=== PATIENT | female | born 1950 | race Caucasian/White ===

== ENCOUNTER 2018-11-12 07:48 | Emergency (ER) | payer OTHER ==
[2018-11-12] MEDS ORDERED: FAMOTIDINE 20 MG/2 ML VIAL IV ONE (08:57)
[2018-11-12] MEDS ORDERED: NA CHLORIDE 0.9% 500 ML ONE ×2 (08:57→11:10)
[2018-11-12] MEDS ORDERED: ONDANSETRON 4 MG/2 ML VIAL ONE (08:57)
[2018-11-12 09:00] LABS: Absolute Lymphocytes (CBC) 0.5 K/uL (0.7-4.9); Absolute Monocytes 0.3 K/uL (0.1-1.3); Absolute Neutrophil 8.8 K/uL (1.8-8.0); Basophils % 0.1 % (0-1.3); Eosinophils % 0.3 % (0-4.4); Hematocrit 38.4 % (36.0-45.0); Lymphocytes % 4.8 % (15.3-44.8); MPV 7.5 fL (7.6-11.3); Monocytes % 3.3 % (3.3-12.3); RBC Red Blood Cell Count 4.32 M/uL (3.86-4.86)
--- NOTE | 2018-11-12 09:07 | RAD REPORT ---
EXAM DESCRIPTION: CT - [id number] - 11/12/2018 8:57 am CLINICAL HISTORY: Trauma, head and neck injury. syncope, head injury;Pain COMPARISON: No comparisons TECHNIQUE: Axial 5 mm thick images of the head were obtained. Axial 2 mm thick images of the cervical spine were obtained with sagittal and coronal reconstruction images generated and reviewed. All CT scans are performed using dose optimization technique as appropriate and may include automated exposure control or mA/KV adjustment according to patient size. FINDINGS: CT HEAD WITHOUT CONTRAST: No acute hemorrhage, hydrocephalus or extra-axial collection is identified.No areas of brain edema or midline shift. The paranasal sinuses and mastoids are clear.The calvarium is intact. CT CERVICAL SPINE WITHOUT CONTRAST: No fracture or subluxation.No prevertebral soft tissues swelling is identified. IMPRESSION: No acute intracranial or cervical spine findings.
[2018-11-12 09:11] LABS: Potassium 3.8 mmol/L (3.5-5.1)
--- NOTE | 2018-11-12 11:39 | EDPHYS ---
Physician Documentation [facility] Name: Milka Quiroz Age: 68 yrs Sex: Female : 1950 Arrival Date: 11/12/2018 Time: 07:49 Bed 4 Private MD: Pato Adams ED Physician Corona Lenz HPI: 11/12 08:05 This 68 yrs old Female presents to ER via Wheelchair with complaints of kdr Passed Out Prior To Arrival, Fall Injury. 08:05 The patient has experienced syncope, became unresponsive, collapsed, lost kdr consciousness. Onset: The symptoms/episode began/occurred acutely, suddenly, just prior to arrival. Duration: This was a single episode, that lasted an unknown period of time. Context: occurred at home, occurred while the patient was Sitting on toilet - has had diarrhea for the past three days. Just prior to the episode the patient experienced lightheadedness. Associated injury: Head/face:. Associated signs and symptoms: The patient has no apparent associated signs or symptoms. Current symptoms: Currently, the patient is not experiencing any symptoms. Current symptoms: Minor nausea and slight tenderness to the frontal/apical area of the scalp. The patient has not experienced similar symptoms in the past. The patient has not recently seen a physician. Historical: - Allergies: 08:04 No Known Allergies; bp - Home Meds: 08:04 Protonix 40 mg Oral TbEC 1 tab once daily [Active]; bp - PMHx: 08:04 GERD; bp - Immunization history:: Adult Immunizations up to date. - Social history:: Smoking status: Patient/guardian denies using tobacco. - Ebola Screening: : No symptoms or risks identified at this time. ROS: 08:05 Constitutional: Negative for fever, chills, and weight loss, Eyes: Negative for injury, kdr pain, redness, and discharge, ENT: Negative for injury, pain, and discharge, Neck: Negative for injury, pain, and swelling, Cardiovascular: Negative for chest pain, palpitations, and edema, Respiratory: Negative for shortness of breath, cough, wheezing, and pleuritic chest pain, Back: Negative for injury and pain, : Negative for injury, bleeding, discharge, and swelling, MS/Extremity: Negative for injury and deformity, Skin: Negative for injury, rash, and discoloration, Psych: Negative for depression, anxiety, suicide ideation, homicidal ideation, and hallucinations, Allergy/Immunology: Negative for hives, rash, and allergies, Endocrine: Negative for neck swelling, polydipsia, polyuria, polyphagia, and marked weight changes, Hematologic/Lymphatic: Negative for swollen nodes, abnormal bleeding, and unusual bruising. 08:05 Abdomen/GI: Positive for nausea, diarrhea, Negative for abdominal pain, vomiting, constipation, abdominal cramps, abdominal distension, anorexia, dysphagia, hematemesis, black/tarry stool, rectal pain, rectal bleeding, bowel incontinence. 08:05 Neuro: Positive for syncope, Negative for altered mental status, dizziness, gait disturbance, headache, hearing loss, numbness, seizure activity, speech changes, syncope. Exam: 08:05 Constitutional: This is a well developed, well nourished patient who is awake, alert, kdr and in no acute distress. Head/Face: Normocephalic, atraumatic. Eyes: Pupils equal round and reactive to light, extra-ocular motions intact. Lids and lashes normal. Conjunctiva and sclera are non-icteric and not injected. Cornea within normal limits. Periorbital areas with no swelling, redness, or edema. Neck: Trachea midline, no thyromegaly or masses palpated, and no cervical lymphadenopathy. Supple, full range of motion without nuchal rigidity, or vertebral point tenderness. No Meningismus. Chest/axilla: Normal chest wall appearance and motion. Nontender with no deformity. No lesions are appreciated. Cardiovascular: Regular rate and rhythm with a normal S1 and S2. No gallops, murmurs, or rubs. Normal PMI, no JVD. No pulse deficits. Respiratory: Lungs have equal breath sounds bilaterally, clear to auscultation and percussion. No rales, rhonchi or wheezes noted. No increased work of breathing, no retractions or nasal flaring. Abdomen/GI: Soft, non-tender, with normal bowel sounds. No distension or tympany. No guarding or rebound. No evidence of tenderness throughout. Back: No spinal tenderness. No costovertebral tenderness. Full range of motion. Skin: Warm, dry with normal turgor. Normal color with no rashes, no lesions, and no evidence of cellulitis. MS/ Extremity: Pulses equal, no cyanosis. Neurovascular intact. Full, normal range of motion. Neuro: Awake and alert, GCS 15, oriented to person, place, time, and situation. Cranial nerves II-XII grossly intact. Motor strength 5/5 in all extremities. Sensory grossly intact. Cerebellar exam normal. Normal gait. Psych: Awake, alert, with orientation to person, place and time. Behavior, mood, and affect are within normal limits. Vital Signs: 07:55 BP 132 / 68; Pulse 95; Resp 16; Temp 97.2; Pulse Ox 100% ; Weight 58.06 kg; Height 5 bp ft. 6 in. (167.64 cm); 08:47 BP 133 / 63; Pulse 84; Resp 14; Pulse Ox 97% ; bp 09:45 BP 123 / 59; Pulse 84; Resp 16; Pulse Ox 99% ; sv 10:11 BP 129 / 59 Supine; Pulse 85; em1 10:14 BP 117 / 56 Sitting; Pulse 89; em1 10:17 BP 81 / 55 Standing; Pulse 95; em1 11:00 BP 134 / 68; Pulse 81; Resp 16; Pulse Ox 98% ; bp 11:32 BP 138 / 55 Supine; Pulse 88; em1 11:35 BP 126 / 64 Sitting; Pulse 85; em1 11:37 BP 126 / 63 Standing; Pulse 91; em1 07:55 Body Mass Index 20.66 (58.06 kg, 167.64 cm) bp MDM: 08:05 Data reviewed: vital signs, nurses notes, lab test result(s), radiologic studies. kdr Counseling: I had a detailed discussion with the patient and/or guardian regarding: the historical points, exam findings, and any diagnostic results supporting the discharge/admit diagnosis, lab results, radiology results, the need for outpatient follow up. 10:54 ED course: The patient was orthostatic, shew felt sightly weak and had nausea. Will kdr bolus again and recheck orthostatics. 11:39 Patient medically screened. kdr 11/12 08:04 Order name: CBC with Diff kdr 11/12 08:04 Order name: Chem 7; Complete Time: 09:40 kdr 11/12 08:04 Order name: CT Head C Spine; Complete Time: 09:40 kdr 11/12 09:14 Order name: CBC Smear Scan EDMS 11/12 09:55 Order name: Orthostatic Blood Pressure; Complete Time: 10:09 kdr 11/12 10:05 Order name: Misc. Order: Clean head wound; Complete Time: 10:18 kdr 11/12 11:29 Order name: Orthostatic Blood Pressure; Complete Time: 11:36 kdr Administered Medications: 08:30 Drug: Zofran 4 mg Route: IVP; Site: right forearm; bp 09:17 Follow up: Response: Nausea is decreased bp 08:30 Drug: Pepcid 20 mg Route: IVP; Site: right forearm; bp 09:17 Follow up: Response: Nausea is decreased bp 08:30 Drug: NS 0.9% 500 ml Route: IV; Rate: bolus; Site: right forearm; bp 10:00 Follow up: IV Status: Completed infusion; IV Intake: 500ml bp 10:55 Drug: NS 0.9% 500 ml Route: IV; Rate: bolus; Site: right forearm; bp 11:54 Follow up: IV Status: Completed infusion; IV Intake: 500ml bp Disposition: 11/12/18 11:39 Discharged to Home. Impression: Diarrhea, unspecified, Weakness, Orthostatic hypotension, Superficial injury of head, Abrasion of scalp, Dehydration. - Condition is Stable. - Discharge Instructions: Diarrhea, Adult, Xdkk-[id number], Syncope, Ewfr-cg-Ejxk, Weakness, Hnif-bg-Cyov, Dehydration, Adult, Mgpk-ix-Jfkm, Facial or Scalp Contusion, Afrt-im-Osul. - Prescriptions for Zofran 4 mg Oral Tablet - take 1 tablet by ORAL route every 12 hours As needed; 12 tablet. Lomotil 2.5- 0.025 mg Oral Tablet - take 2 tablet by ORAL route once daily As needed; 20 tablet. - Medication Reconciliation Form, Thank You Letter form. - Follow up: Pato Adams MD; When: 2 - 3 days; Reason: If symptoms return, Further diagnostic work-up, Recheck today's complaints, Continuance of care, Re-evaluation by your physician. - Problem is new. - Symptoms have improved. Signatures: Dispatcher [employer] EDMS Corona Lenz MD MD kdr Ananth Briones, RN RN bp Corrections: (The following items were deleted from the chart) 11:54 11:39 11/12/2018 11:39 Discharged to Home. Impression: Diarrhea, unspecified; Weakness; bp Orthostatic hypotension; Superficial injury of head; Abrasion of scalp; Dehydration. Condition is Stable. Forms are Medication Reconciliation Form, Thank You Letter, Antibiotic Education, Prescription Opioid Use. Follow up: Pato Adams; When: 2 - 3 days; Reason: If symptoms return, Further diagnostic work-up, Recheck today's complaints, Continuance of care, Re-evaluation by your physician. Problem is new. Symptoms have improved. kdr
--- NOTE | 2018-11-12 11:39 | ER ---
Nurse's Notes [facility] Name: Milka Quiroz Age: 68 yrs Sex: Female : 1950 Arrival Date: 11/12/2018 Time: 07:49 Bed 4 Private MD: Pato Adams Diagnosis: Diarrhea, unspecified;Weakness;Orthostatic hypotension;Superficial injury of head;Abrasion of scalp;Dehydration Presentation: 11/12 07:55 Presenting complaint: Patient states: FALL FROM TOILET WITH LOC. Transition of care: bp patient was not received from another setting of care. Onset of symptoms was November 12, 2018 at 07:00. Risk Assessment: Do you want to hurt yourself or someone else? Patient reports no desire to harm self or others. Initial Sepsis Screen: Does the patient meet any 2 criteria? No. Patient's initial sepsis screen is negative. Does the patient have a suspected source of infection? No. Patient's initial sepsis screen is negative. Care prior to arrival: None. 07:55 Method Of Arrival: Wheelchair bp 07:55 Acuity: JAYJAY 3 bp Triage Assessment: 07:55 General: Appears in no apparent distress. comfortable, Behavior is calm, cooperative, bp appropriate for age. Pain: Complains of pain in right temporal area. EENT: No deficits noted. Neuro: Level of Consciousness is awake, alert, obeys commands, Oriented to person, place, time, situation, Appropriate for age. Cardiovascular: No deficits noted. Respiratory: Airway is patent Respiratory effort is even, unlabored, Respiratory pattern is regular, symmetrical. GI: Parent/caregiver reports the patient having vomiting. : No signs and/or symptoms were reported regarding the genitourinary system. Derm: No deficits noted. Musculoskeletal: Circulation, motion, and sensation intact. Range of motion: intact in all extremities. Historical: - Allergies: 08:04 No Known Allergies; bp - Home Meds: 08:04 Protonix 40 mg Oral TbEC 1 tab once daily [Active]; bp - PMHx: 08:04 GERD; bp - Immunization history:: Adult Immunizations up to date. - Social history:: Smoking status: Patient/guardian denies using tobacco. - Ebola Screening: : No symptoms or risks identified at this time. Screenin:12 Abuse screen: Denies threats or abuse. Denies injuries from another. Nutritional bp screening: No deficits noted. Tuberculosis screening: No symptoms or risk factors identified. Fall Risk None identified. Assessment: 07:55 General: SEE TRIAGE NOTE. bp 08:47 Reassessment: CT PENDING, NO ACTIVE VOMITING AT THIS TIME. bp 11:07 Reassessment: IVF INFUSING. PO CHALLENGE SUCCESSFUL. bp 11:52 Reassessment: PT D/C HOME VIA W/C WITH FAMILY, DX WITH DIARRHEA AND ORTHOSTATIC bp HYPOTENSION. Vital Signs: 07:55 BP 132 / 68; Pulse 95; Resp 16; Temp 97.2; Pulse Ox 100% ; Weight 58.06 kg; Height 5 bp ft. 6 in. (167.64 cm); 08:47 BP 133 / 63; Pulse 84; Resp 14; Pulse Ox 97% ; bp 09:45 BP 123 / 59; Pulse 84; Resp 16; Pulse Ox 99% ; sv 10:11 BP 129 / 59 Supine; Pulse 85; em1 10:14 BP 117 / 56 Sitting; Pulse 89; em1 10:17 BP 81 / 55 Standing; Pulse 95; em1 11:00 BP 134 / 68; Pulse 81; Resp 16; Pulse Ox 98% ; bp 11:32 BP 138 / 55 Supine; Pulse 88; em1 11:35 BP 126 / 64 Sitting; Pulse 85; em1 11:37 BP 126 / 63 Standing; Pulse 91; em1 07:55 Body Mass Index 20.66 (58.06 kg, 167.64 cm) bp ED Course: 07:49 Patient arrived in ED. as 07:49 Pato Adams MD is Private Physician. as 07:53 Corona Lenz MD is Attending Physician. kdr 07:55 Ananth Briones, NILSON is Primary Nurse. bp 08:03 Triage completed. bp 08:09 Arm band placed on. bp 08:12 Patient has correct armband on for positive identification. Bed in low position. Call bp light in reach. Side rails up X2. Adult w/ patient. 08:27 Note: BARB TO CALL WHEN PTS READY. mw3 08:38 Inserted saline lock: 20 gauge in right forearm, using aseptic technique. Blood bp collected. 08:58 CT Head C Spine In Process Unspecified. EDMS 08:58 CT completed. Patient tolerated procedure well. Patient moved back from CT. mw3 11:38 Pato Adams MD is Referral Physician. kdr 11:52 No provider procedures requiring assistance completed. IV discontinued, intact, bp bleeding controlled, No redness/swelling at site. Pressure dressing applied. Administered Medications: 08:30 Drug: Zofran 4 mg Route: IVP; Site: right forearm; bp 09:17 Follow up: Response: Nausea is decreased bp 08:30 Drug: Pepcid 20 mg Route: IVP; Site: right forearm; bp 09:17 Follow up: Response: Nausea is decreased bp 08:30 Drug: NS 0.9% 500 ml Route: IV; Rate: bolus; Site: right forearm; bp 10:00 Follow up: IV Status: Completed infusion; IV Intake: 500ml bp 10:55 Drug: NS 0.9% 500 ml Route: IV; Rate: bolus; Site: right forearm; bp 11:54 Follow up: IV Status: Completed infusion; IV Intake: 500ml bp Intake: 10:00 IV: 500ml; Total: 500ml. bp 11:54 IV: 500ml; Total: 1000ml. bp Outcome: 11:39 Discharge ordered by MD. kdr 11:53 Discharged to home via wheelchair, with family. bp 11:53 Condition: stable 11:53 Discharge instructions given to patient, Instructed on discharge instructions, follow up and referral plans. medication usage, Demonstrated understanding of instructions, follow-up care, medications, Prescriptions given X 2. 11:54 Patient left the ED. bp Signatures: Dispatcher [employer] EDKarishma Neves RN RN Corona Lenz MD MD kdr Martinez, Amelia as Martinez, Eric em1 Ananth Briones RN RN bp Antonia Sam mw3 Corrections: (The following items were deleted from the chart) 11:38 11:32 BP 126 / 64 Sitting; Pulse 85bpm; em1 em1
[2018-11-12 11:53] LABS: Blood Morphology Comment NOT SEEN (NOT SEEN); Platelet Estimate ADEQ; Urine White Blood Cell Casts OK
== END 2018-11-12 11:54 | disposition home or self-care (01) ==
LOC: ER 07:48
DX: I95.1 Orthostatic hypotension (principal); R53.1 Weakness; R19.7 Diarrhea, unspecified; E86.0 Dehydration; S00.01XA Abrasion of scalp, initial encounter; W18.11XA Fall from or off toilet without subsequent striking against object, initial encounter; Y93.9 Activity, unspecified; Y92.002 Bathroom of unspecified non-institutional (private) residence as the place of occurrence of the external cause; K21.9 Gastro-esophageal reflux disease without esophagitis
CPT/HCPCS: 96361; 85025; 80048; 36415; 70450; 72125; 96375; 96374; 99284; J2405

== ENCOUNTER 2018-11-14 09:43 | Emergency (ER) | payer OTHER ==
[2018-11-14 11:21] LABS: Absolute Lymphocytes (CBC) 0.4 K/uL (0.7-4.9); Absolute Monocytes 0.4 K/uL (0.1-1.3); Absolute Neutrophil 2.6 K/uL (1.8-8.0); Basophils % 0.7 % (0-1.3); Eosinophils % 1.6 % (0-4.4); Hematocrit 36.9 % (36.0-45.0); MPV 7.3 fL (7.6-11.3); Monocytes % 11.6 % (3.3-12.3); RBC Red Blood Cell Count 4.26 M/uL (3.86-4.86)
[2018-11-14 11:26] LABS: Protime INR 0.99
--- NOTE | 2018-11-14 11:36 | ER ---
Nurse's Notes [facility] Name: Milka Quiroz Age: 68 yrs Sex: Female : 1950 Arrival Date: 11/14/2018 Time: 09:46 Bed 18 Private MD: Pato Adams Diagnosis: Diarrhea, unspecified;Chronic obstructive pulmonary disease, unspecified;Weakness;Left sided colitis-pancolitiis Presentation: 11/14 09:59 Presenting complaint: Patient states: was seen here on Wednesday for diarrhea, vomiting, iw dehydration, was prescribed Lomotil and Zofran, pt still having diarrhea, no vomiting, reports cramping before BM, has not been eating much, pt still feeling weak. Transition of care: patient was not received from another setting of care. Onset of symptoms was November 12, 2018. 09:59 Method Of Arrival: Ambulatory iw 09:59 Acuity: JAYJAY 3 iw 10:15 Risk Assessment: Do you want to hurt yourself or someone else? Patient reports no iw desire to harm self or others. Initial Sepsis Screen: Does the patient meet any 2 criteria? No. Patient's initial sepsis screen is negative. Does the patient have a suspected source of infection? No. Patient's initial sepsis screen is negative. Care prior to arrival: None. Historical: - Allergies: 10:02 No Known Allergies; ph - Home Meds: 10:02 Protonix 40 mg Oral TbEC 1 tab once daily [Active]; ph - PMHx: 10:02 GERD; ph - Immunization history:: Adult Immunizations unknown, Adult Immunizations up to date. - Social history:: Patient/guardian denies using Smoking status: . - Ebola Screening: : No symptoms or risks identified at this time. - Family history:: not pertinent. Screenin:00 Abuse screen: Denies threats or abuse. Denies injuries from another. Nutritional ph screening: No deficits noted. Tuberculosis screening: No symptoms or risk factors identified. Fall Risk Fall in past 12 months (25 points). No secondary diagnosis (0 pts). IV access (20 points). Ambulatory Aid- None/Bed Rest/Nurse Assist (0 pts). Gait- Weak (10 pts.). Mental Status- Oriented to own ability (0 pts). Total Thompson Fall Scale indicates High Risk Score (45 or more points). Fall prevention measures have been instituted. Side Rails Up X 2 Placed Close to Nursing Station Frequent Obs/Assessments Occuring Family Present and informed to notify staff if the need to leave the bedside As available patient and family educated on Fall Prevention Program and Strategies. Assessment: 10:30 General: Appears in no apparent distress. comfortable, slender, well groomed, Behavior ph is calm, cooperative, appropriate for age, Reports fatigue for >3 days, Denies fever. Pain: Denies pain. Neuro: Level of Consciousness is awake, alert, obeys commands, Oriented to person, place, time, situation, Reports dizziness, weakness in " all over". Cardiovascular: Reports fatigue, lightheadedness, nausea, vomiting, Denies chest pain, palpitations, shortness of breath, Rhythm is regular. Respiratory: Reports cough that is Airway is patent Respiratory effort is even, unlabored, Respiratory pattern is regular, symmetrical, Breath sounds are clear bilaterally. GI: Abdomen is round non-distended, Bowel sounds present X 4 quads. Abd is soft and non tender X 4 quads. Reports diarrhea, nausea, vomiting, Patient currently denies abdominal pain. : Denies burning with urination, urinary frequency. Derm: Skin is intact, is healthy with good turgor, Skin is pink, warm \\T\\ dry. Musculoskeletal: Circulation, motion, and sensation intact. Range of motion: intact in all extremities. 11:30 Reassessment: Patient appears in no apparent distress at this time. Patient and/or ph family updated on plan of care and expected duration. Pain level reassessed. Patient is alert, oriented x 3, equal unlabored respirations, skin warm/dry/pink. Patient denies pain at this time. 11:40 Reassessment: Patient completed PO contrast, CT notified via telephone. ae4 12:30 Reassessment: Patient appears in no apparent distress at this time. Patient and/or ph family updated on plan of care and expected duration. Pain level reassessed. Patient is alert, oriented x 3, equal unlabored respirations, skin warm/dry/pink. 13:33 Reassessment: Patient appears in no apparent distress at this time. Patient and/or ph family updated on plan of care and expected duration. Pain level reassessed. Patient is alert, oriented x 3, equal unlabored respirations, skin warm/dry/pink. Pt ambulated to restroom w/ steady gait. 14:10 Reassessment: Patient appears in no apparent distress at this time. Patient and/or ph family updated on plan of care and expected duration. Pain level reassessed. Patient is alert, oriented x 3, equal unlabored respirations, skin warm/dry/pink. ERP at bedside to speak w/ pt. 14:30 Reassessment: Patient appears in no apparent distress at this time. Patient and/or ph family updated on plan of care and expected duration. Pain level reassessed. Patient is alert, oriented x 3, equal unlabored respirations, skin warm/dry/pink. D/C pending completion of IV antibiotics. Vital Signs: 10:00 BP 144 / 58; Pulse 81; Resp 18; Temp 98.2(TE); Pulse Ox 99% on R/A; Weight 56.7 kg; iw Height 5 ft. 6 in. (167.64 cm); Pain 0/10; 11:00 BP 130 / 75; Pulse 77; Resp 16; Pulse Ox 100% on R/A; ph 12:00 BP 143 / 67; Pulse 77; Resp 16; Pulse Ox 99% ; ph 13:08 BP 137 / 90; Pulse 81; Resp 18; Pulse Ox 100% on Nebulizer Mask; ph 14:11 BP 132 / 54; Pulse 94; Resp 18; Pulse Ox 100% on R/A; ph 15:16 BP 134 / 76; Pulse 82; Resp 18; Temp 97.5; Pulse Ox 100% on R/A; ph 10:00 Body Mass Index 20.18 (56.70 kg, 167.64 cm) iw ED Course: 09:46 Patient arrived in ED. mr 09:46 Pato Adams MD is Private Physician. mr 09:57 Nancy Ayoub, RN is Primary Nurse. ph 10:01 Patient has correct armband on for positive identification. Placed in gown. Bed in low ph position. Call light in reach. Side rails up X2. cafeteria monitor on. Pulse ox on. NIBP on. Door closed. Noise minimized. Warm blanket given. Head of bed elevated. 10:02 Arm band placed on Patient placed in an exam room, on a stretcher, on pulse oximetry. ph 10:06 Triage completed. iw 10:33 Boubacar Tierney MD is Attending Physician. bob 11:03 EKG done, by technical writing lead/mgr. reviewed by Boubacar Tierney MD. at1 11:16 Initial lab(s) drawn, by me, sent to lab. Inserted saline lock: 22 gauge in right jb1 antecubital area, using aseptic technique. Blood collected. 11:21 X-ray completed. Portable x-ray completed in exam room. Patient tolerated procedure mh1 well. 14:13 Pato Adams MD is Referral Physician. bob 14:14 Chato Smith MD is Referral Physician. bob 14:17 No provider procedures requiring assistance completed. ph 15:15 IV discontinued, intact, bleeding controlled, No redness/swelling at site. Pressure ph dressing applied. Administered Medications: 12:00 Drug: NS 0.9% 1000 ml Route: IV; Rate: 1 bolus; Site: right antecubital; ph 13:00 Follow up: Response: No adverse reaction; IV Status: Completed infusion; IV Intake: ph 1000ml 13:04 Drug: NS 0.9% 1000 ml Route: IV; Rate: 125 ml/hr; Site: right antecubital; ph 15:13 Follow up: Response: No adverse reaction; IV Status: Completed infusion; IV Intake: ph 250ml 13:04 Drug: SOLU-Medrol 2 mg/kg Route: IVP; Site: right antecubital; ph 13:35 Follow up: Response: No adverse reaction ph 13:05 Drug: Xopenex 2.5 mg Route: Inhalation; ph 13:34 Follow up: Response: No adverse reaction ph 13:05 Drug: AtroVENT Aerosol 0.5 mg Route: Inhalation; ph 13:34 Follow up: Response: No adverse reaction ph 13:05 Drug: Flagyl 500 mg Volume: 100 ml; Route: IVPB; Rate: 200 ml/hr; Infused Over: 30 ph mins; Site: right antecubital; 13:34 Follow up: Response: No adverse reaction; IV Status: Completed infusion ph 13:46 Drug: Cipro 400 mg Volume: 200 ml; Route: IVPB; Infused Over: 60 mins; Site: right ph antecubital; 15:12 Follow up: Response: No adverse reaction; IV Status: Completed infusion ph Intake: 13:00 IV: 1000ml; Total: 1000ml. ph 15:13 IV: 250ml; Total: 1250ml. ph Outcome: 11:35 ER care complete, transfer ordered by . bob 14:14 Discharge ordered by . bob 15:14 Discharged to home ambulatory, with family. ph 15:14 Condition: good 15:14 Discharge instructions given to patient, Instructed on discharge instructions, follow up and referral plans. medication usage, Demonstrated understanding of instructions, follow-up care, medications, Prescriptions given X 5 15:16 Patient left the ED. ph Signatures: Riki Padgett jb1 Boubacar Tierney MD MD cha Rivera, Elda mr Pato, Ashtyn mh1 Natividad Massey, RN RN Isabel Covarrubias, echo vascular technologist EKG Tat1 Nancy Ayoub RN RN Timmy Young, RN RN ae4 Corrections: (The following items were deleted from the chart) 10:15 10:00 BP 144 / 58; Pulse 81bpm; Resp 18bpm; Pulse Ox 99% RA; ph iw
--- NOTE | 2018-11-14 11:36 | EDPHYS ---
Physician Documentation [facility] Name: Milka Quiroz Age: 68 yrs Sex: Female : 1950 Arrival Date: 11/14/2018 Time: 09:46 Bed 18 Private MD: Pato Adams ED Physician Boubacar Tierney HPI: 11/14 10:54 This 68 yrs old Female presents to ER via Ambulatory with complaints of bob Fainting, Vomiting/Diarrhea, Shortness Of Breath. 10:54 The patient has experienced near-syncope, almost passed out, felt dizzy. Onset: The bob symptoms/episode began/occurred today. Duration: This was a single episode, that lasted 3 second(s). Context: the episode(s) was witnessed, by family. Associated injury: The patient did not suffer any apparent associated injury. Associated signs and symptoms: Pertinent positives: diarrhea, dizziness. Current symptoms: Currently, the patient is not experiencing any symptoms. The patient has not experienced similar symptoms in the past. Historical: - Allergies: 10:02 No Known Allergies; ph - Home Meds: 10:02 Protonix 40 mg Oral TbEC 1 tab once daily [Active]; ph - PMHx: 10:02 GERD; ph - Immunization history:: Adult Immunizations unknown, Adult Immunizations up to date. - Social history:: Patient/guardian denies using Smoking status: . - Ebola Screening: : No symptoms or risks identified at this time. - Family history:: not pertinent. ROS: 10:54 Constitutional: Negative for fever, chills, and weight loss, Eyes: Negative for injury, bob pain, redness, and discharge, ENT: Negative for injury, pain, and discharge, Neck: Negative for injury, pain, and swelling, Cardiovascular: Negative for chest pain, palpitations, and edema, Respiratory: Negative for shortness of breath, cough, wheezing, and pleuritic chest pain, Back: Negative for injury and pain, : Negative for injury, bleeding, discharge, and swelling, MS/Extremity: Negative for injury and deformity, Skin: Negative for injury, rash, and discoloration, Neuro: Negative for headache, weakness, numbness, tingling, and seizure, Psych: Negative for depression, anxiety, suicide ideation, homicidal ideation, and hallucinations, Allergy/Immunology: Negative for hives, rash, and allergies, Endocrine: Negative for neck swelling, polydipsia, polyuria, polyphagia, and marked weight changes, Hematologic/Lymphatic: Negative for swollen nodes, abnormal bleeding, and unusual bruising. 10:54 Abdomen/GI: Positive for abdominal pain, diarrhea, abdominal cramps. 10:54 Neuro: Positive for dizziness, weakness. Exam: 10:54 Constitutional: This is a well developed, well nourished patient who is awake, alert, bob and in no acute distress. Head/Face: Normocephalic, atraumatic. Eyes: Pupils equal round and reactive to light, extra-ocular motions intact. Lids and lashes normal. Conjunctiva and sclera are non-icteric and not injected. Cornea within normal limits. Periorbital areas with no swelling, redness, or edema. ENT: Nares patent. No nasal discharge, no septal abnormalities noted. Tympanic membranes are normal and external auditory canals are clear. Oropharynx with no redness, swelling, or masses, exudates, or evidence of obstruction, uvula midline. Mucous membranes moist. Neck: Trachea midline, no thyromegaly or masses palpated, and no cervical lymphadenopathy. Supple, full range of motion without nuchal rigidity, or vertebral point tenderness. No Meningismus. Chest/axilla: Normal chest wall appearance and motion. Nontender with no deformity. No lesions are appreciated. Cardiovascular: Regular rate and rhythm with a normal S1 and S2. No gallops, murmurs, or rubs. Normal PMI, no JVD. No pulse deficits. Respiratory: Lungs have equal breath sounds bilaterally, clear to auscultation and percussion. No rales, rhonchi or wheezes noted. No increased work of breathing, no retractions or nasal flaring. Back: No spinal tenderness. No costovertebral tenderness. Full range of motion. Female : Normal external genitalia. Skin: Warm, dry with normal turgor. Normal color with no rashes, no lesions, and no evidence of cellulitis. MS/ Extremity: Pulses equal, no cyanosis. Neurovascular intact. Full, normal range of motion. Neuro: Awake and alert, GCS 15, oriented to person, place, time, and situation. Cranial nerves II-XII grossly intact. Motor strength 5/5 in all extremities. Sensory grossly intact. Cerebellar exam normal. Normal gait. Psych: Awake, alert, with orientation to person, place and time. Behavior, mood, and affect are within normal limits. 10:54 Abdomen/GI: Inspection: abdomen appears normal, Bowel sounds: normal, Palpation: abdomen is soft and non-tender, Liver: no appreciated palpable abnormalities, Hernia: not appreciated. 11:36 Cardiovascular: Rate: normal, Rhythm: regular, Pulses: Pulses are 4+ in bilateral bob radial, brachial, femoral, popliteal, posterior tibial and and dorsalis pedis arteries.. Heart sounds: normal, Edema: is not appreciated, JVD: is not appreciated. 11:36 Musculoskeletal/extremity: DVT Exam: No signs of deep vein thrombosis. no pain, no swelling, no tenderness, negative Homans' sign noted on exam, no appreciated bluish discoloration, no erythema, no increased warmth. 11:36 Neuro: Exam negative for acute changes, Orientation: is normal, appropriate for stated age, no acute changes, Mentation: is normal, appropriate for stated age, no acute changes, Memory: is normal, appropriate for stated age, no acute changes, Cranial nerves: grossly normal, is grossly normal based on the patient's age, no acute changes, Cerebellar function: is grossly normal, is grossly normal based on the patient's age, no acute changes, Motor: is normal, Sensation: is normal, Gait: not applicable Deep tendon reflexes are 2+ (normal) in the bilateral brachioradialis, bicep, tricep and patellar and Achilles tendons, Babinski testing is normal, seizure activity, is not displayed by the patient. Vital Signs: 10:00 BP 144 / 58; Pulse 81; Resp 18; Temp 98.2(TE); Pulse Ox 99% on R/A; Weight 56.7 kg; iw Height 5 ft. 6 in. (167.64 cm); Pain 0/10; 11:00 BP 130 / 75; Pulse 77; Resp 16; Pulse Ox 100% on R/A; ph 12:00 BP 143 / 67; Pulse 77; Resp 16; Pulse Ox 99% ; ph 13:08 BP 137 / 90; Pulse 81; Resp 18; Pulse Ox 100% on Nebulizer Mask; ph 14:11 BP 132 / 54; Pulse 94; Resp 18; Pulse Ox 100% on R/A; ph 15:16 BP 134 / 76; Pulse 82; Resp 18; Temp 97.5; Pulse Ox 100% on R/A; ph 10:00 Body Mass Index 20.18 (56.70 kg, 167.64 cm) iw MDM: 10:33 Patient medically screened. [facility] 10:55 Data reviewed: vital signs, nurses notes, lab test result(s), EKG, radiologic studies, [facility] CT scan, plain films. 11/14 10:53 Order name: Basic Metabolic Panel; Complete Time: 12:21 [facility] 11/14 10:53 Order name: CBC with Diff; Complete Time: 11:36 [facility] 11/14 10:53 Order name: LFT's; Complete Time: 12:21 [facility] 11/14 10:53 Order name: Magnesium; Complete Time: 12:21 [facility] 11/14 10:53 Order name: NT PRO-BNP; Complete Time: 12:21 [facility] 11/14 10:53 Order name: PT-INR; Complete Time: 11:36 [facility] 11/14 10:53 Order name: Troponin (emerg Dept Use Only); Complete Time: 12:21 [facility] 11/14 10:53 Order name: Lipase; Complete Time: 12:21 [facility] 11/14 10:53 Order name: Urine Culture [facility] 11/14 14:33 Order name: Urine Dipstick--Ancillary (enter results) 11/14 14:43 Order name: Urine Dipstick-Ancillary; Complete Time: 15:00 [facility] 11/14 10:53 Order name: XRAY Chest (1 view) [facility] 11/14 10:53 Order name: EKG; Complete Time: 10:55 [facility] 11/14 10:53 Order name: Cardiac monitoring; Complete Time: 10:54 [facility] 11/14 10:53 Order name: EKG - Nurse/Tech; Complete Time: 11:00 [facility] 11/14 10:53 Order name: IV Saline Lock; Complete Time: 11:16 [facility] 11/14 10:53 Order name: Labs collected and sent; Complete Time: 11:17 [facility] 11/14 10:53 Order name: CT Abd/Pelvis - IV Contrast Only [facility] 11/14 12:50 Order name: CT; Complete Time: 14:05 [facility] 11/14 13:04 Order name: RAD; Complete Time: 14:05 [facility] 11/14 10:53 Order name: O2 Per Protocol; Complete Time: 10:54 [facility] 11/14 10:53 Order name: O2 Sat Monitoring; Complete Time: 10:54 [facility] 11/14 11:46 Order name: Orthostatics; Complete Time: 11:57 [facility] 11/14 15:00 Order name: PO challenge; Complete Time: 15:12 [facility] Administered Medications: 12:00 Drug: NS 0.9% 1000 ml Route: IV; Rate: 1 bolus; Site: right antecubital; ph 13:00 Follow up: Response: No adverse reaction; IV Status: Completed infusion; IV Intake: ph 1000ml 13:04 Drug: NS 0.9% 1000 ml Route: IV; Rate: 125 ml/hr; Site: right antecubital; ph 15:13 Follow up: Response: No adverse reaction; IV Status: Completed infusion; IV Intake: ph 250ml 13:04 Drug: SOLU-Medrol 2 mg/kg Route: IVP; Site: right antecubital; ph 13:35 Follow up: Response: No adverse reaction ph 13:05 Drug: Xopenex 2.5 mg Route: Inhalation; ph 13:34 Follow up: Response: No adverse reaction ph 13:05 Drug: AtroVENT Aerosol 0.5 mg Route: Inhalation; ph 13:34 Follow up: Response: No adverse reaction ph 13:05 Drug: Flagyl 500 mg Volume: 100 ml; Route: IVPB; Rate: 200 ml/hr; Infused Over: 30 ph mins; Site: right antecubital; 13:34 Follow up: Response: No adverse reaction; IV Status: Completed infusion ph 13:46 Drug: Cipro 400 mg Volume: 200 ml; Route: IVPB; Infused Over: 60 mins; Site: right ph antecubital; 15:12 Follow up: Response: No adverse reaction; IV Status: Completed infusion ph Disposition: 11/14/18 14:14 Discharged to Home. Impression: Diarrhea, unspecified, Chronic obstructive pulmonary disease, unspecified, Weakness, Left sided colitis - pancolitiis. - Condition is Stable. - Discharge Instructions: Food Choices to Help Relieve Diarrhea, Adult, Chronic Bronchitis, Diarrhea, Adult, Near-Syncope, Weakness, Diarrhea, Adult, [id number], Weakness, [id number], Aspirin and Your Heart, Colitis. - Prescriptions for Flagyl 500 mg Oral Tablet - take 1 tablet by ORAL route every 8 hours for 7 days; 21 tablet. Pepcid 20 mg Oral Tablet - take 1 tablet by ORAL route every 12 hours for 10 days; 20 tablet. Zofran 4 mg Oral Tablet - take 1 tablet by ORAL route every 12 hours As needed; 14 tablet. Cipro 500 mg Oral Tablet - take 1 tablet by ORAL route every 12 hours for 7 days; 14 tablet. Albuterol Sulfate 90 mcg/actuation - inhale 1-2 puff by INHALATION route every 4-6 hours; 1 Inhaler. - Medication Reconciliation Form, Thank You Letter, Antibiotic Education, Prescription Opioid Use form. - Follow up: Pato Adams; When: 2 - 3 days; Reason: Recheck today's complaints, Continuance of care, Re-evaluation by your physician. Follow up: Chato Smith MD; When: 2 - 3 days; Reason: Recheck today's complaints, Continuance of care, Re-evaluation by your physician. - Problem is new. - Symptoms have improved. Signatures: Dispatcher [employer] EDBoubacar Lee MD MD cha Williams, Irene, RN RN Nancy Ayoub RN RN ph Corrections: (The following items were deleted from the chart) 11:38 11:35 11/14/2018 11:35 Transfer ordered to 's [facility]. Diagnosis is Bradycardia, unspecified; Hypotension; Other chest pain. Reason for transfer: Higher level of care. [facility]. Condition is Fair. Problem is new. Symptoms have improved. [facility] 15:16 14:14 11/14/2018 14:14 Discharged to Home. Impression: Diarrhea, unspecified; Chronic ph obstructive pulmonary disease, unspecified; Weakness; Left sided colitis - pancolitiis. Condition is Stable. Discharge Instructions: Food Choices to Help Relieve Diarrhea, Adult, Chronic Bronchitis, Diarrhea, Adult, Near-Syncope, Weakness, Diarrhea, Adult, [id number], Weakness, Setx-[id number]-[id number], Aspirin and Your Heart. Prescriptions for Flagyl 500 mg Oral Tablet - take 1 tablet by ORAL route every 8 hours for 7 days; 21 tablet, Pepcid 20 mg Oral Tablet - take 1 tablet by ORAL route every 12 hours for 10 days; 20 tablet, Zofran 4 mg Oral Tablet - take 1 tablet by ORAL route every 12 hours As needed; 14 tablet, Cipro 500 mg Oral Tablet - take 1 tablet by ORAL route every 12 hours for 7 days; 14 tablet, Medrol (Ruben) 4 mg Oral Tablets, Dose Pack - take 1 tablet by ORAL route as directed - follow package instructions; 1 packet, Albuterol Sulfate 90 mcg/actuation - inhale 1-2 puff by INHALATION route every 4-6 hours; 1 Inhaler. and Forms are Medication Reconciliation Form, Thank You Letter, Antibiotic Education, Prescription Opioid Use. Follow up: Pato Adams; When: 2 - 3 days; Reason: Recheck today's complaints, Continuance of care, Re-evaluation by your physician. Follow up: Chato Smith; When: 2 - 3 days; Reason: Recheck today's complaints, Continuance of care, Re-evaluation by your physician. Problem is new. Symptoms have improved. bob
[2018-11-14 11:44] LABS: ALT/SGPT 22 U/L (12-78); AST/SGOT 21 U/L (15-37); Albumin 3.3 g/dL (3.4-5.0); Alkaline Phosphatase 67 U/L (45-117); BUN Blood Urea Nitrogen 13 mg/dL (7-18); Bicarbonate 23 mmol/L (21-32); Bilirubin Direct 0.1 mg/dL (0-0.2); Bilirubin Total 0.4 mg/dL (0.2-1.0); Glucose Level 99 mg/dL (74-106); Lipase 78 U/L (73-393); NT PRO-BNP 252 pg/mL (<125); Potassium 3.5 mmol/L (3.5-5.1); Sodium Level 140 mmol/L (136-145); Troponin (Emerg Dept Use Only) < 0.02 ng/mL (0.0-0.045)
--- NOTE | 2018-11-14 12:16 | EKG ---
Test Date: 2018-11-14 Test Time: 11:01:32 Contact Printer Dry Film: FLAVIO MEASUREMENT RESULTS: Intervals: Rate: 73 FL: 150 QRSD: 88 QT: 388 QTc: 427 [place]: P: 73 FL: 150 QRS: 65 T: 41 INTERPRETIVE STATEMENTS: Normal sinus rhythm Nonspecific ST abnormality Abnormal ECG Compared to ECG 04/21/2002 08:25:00 No significant changes Electronically Signed On 11-14-18 12:15:42 CDT by Jamaal Ackerman
[2018-11-14] MEDS ORDERED: CIPROFLOXACIN 400mg IV 400 MG/200 ML BAG IV ONE (12:39)
[2018-11-14] MEDS ORDERED: METRONIDAZOLE 500mg IVPB 500 MG/100 ML BAG IV ONE (12:39)
[2018-11-14] MEDS ORDERED: METHYLPREDNISOLONE 125 MG INJ ONE (12:39)
[2018-11-14] MEDS ORDERED: IPRATROPIUM BROM 0.5MG/2.5ML ONE (12:39)
[2018-11-14] MEDS ORDERED: LEVALBUTEROL 1.25 MG/3 ML NEB ONE (12:39)
[2018-11-14] MEDS ORDERED: NA CHLORIDE 0.9% 1,000 ML ONE (12:40)
--- NOTE | 2018-11-14 12:48 | RAD REPORT ---
EXAM DESCRIPTION: CTAbdomen Pelvis W Contrast - 11/14/2018 12:37 pm CLINICAL HISTORY: Abdominal pain. ABD PAIN COMPARISON: No comparisons TECHNIQUE: Biphasic CT imaging of the abdomen and pelvis was performed with 100 ml non-ionic IV cont rast. All CT scans are performed using dose optimization technique as appropriate and may include automated exposure control or mA/KV adjustment according to patient size. FINDINGS: Linear atelectasis is present in the right lung base. Mild diffuse fatty liver is present. The spleen, pancreas, adrenal glands and kidneys are within norm al limits. Small right renal cyst. No bowel obstruction, free air, free fluid or abscess. Diffuse mucosal enhancement and thickening of the colon is present most compatible with mild pancolitis. No bowel obstruction or free air. The appe ndix is not identified as a discrete structure, however, no secondary findings of appendicitis are id entified. No evidence of significant lymphadenopathy. No suspicious bony findings. IMPRESSION: A diffuse [id number] pancolitis pattern is present.
--- NOTE | 2018-11-14 13:03 | RAD REPORT ---
EXAM DESCRIPTION: Evelyn Single View11/14/2018 11:22 am CLINICAL HISTORY: Abd pain COMPARISON: none FINDINGS: Lungs are hyperaerated. The lungs appear clear of acute infiltrate. The heart is normal size IMPRESSION: No acute abnormalities displayed
[2018-11-14 14:40] LABS: Urine Blood 2+ (NEG); Urine Glucose NEGATIVE (NEG); Urine Protein NEGATIVE (NEG); Urine Specific Gravity <1.005 (1.005-1.030)
== END 2018-11-14 15:16 | disposition home or self-care (01) ==
LOC: ER 09:43
DX: K51.50 Left sided colitis without complications (principal); J44.9 Chronic obstructive pulmonary disease, unspecified; R53.1 Weakness; K21.9 Gastro-esophageal reflux disease without esophagitis
CPT/HCPCS: 96365; 96367; 96361; 93005; 87088; 85025; 87086; 80048; 36415; 83735; 85610; 80076; 81003; 84484; 83690; 83880; 74177; 71045; 96375; 99285; Q9967; J7030; J2930; J0744

== ENCOUNTER 2020-01-26 12:42 | Emergency (ER) | payer OTHER ==
--- OUTSIDE RECORDS SUMMARY | 2020-01-26 13:04 | XMS REPORT | Continuity of Care Document ---
:1950 Author Organization [facility] t Address [address] [place] [address] Care Team Providers Name Role Phone Eliseo LOOMIS Primary Care Physician Unavailable Mark RICE Attending Clinician Unavailable SYSTEM, NOT IN Attending Clinician Unavailable Eliseo LOOMIS Attending Clinician Unavailable Vanessa DEVINE Attending Clinician Unavailable Eliseo Loomis MD Attending Clinician Sree GARCIA Attending Clinician August Mejia RPH Attending Clinician Clark GARCIA, Crystal Attending Clinician Roberto DAVALOS Attending Clinician Nelly WARREN Attending Clinician NATASHA Attending Clinician Unavailable Natasha MOCTEZUMA Attending Clinician Lis MOCTEZUMA Attending Clinician Unavailable Chris DEVINE Attending Clinician Unavailable Don WARREN, L Attending Clinician Payers Payer Name Policy Type Policy Number Effective Date Expiration Date S kristy MEDICARE PART A [id number] 2015 AND B 00:00:00 [place] [id number] 2015 00:00:00 Problems Condition Condition Condition Status Onset Resolution Last Treating Co mments Source Name Details Category Date Date Treatment Clinician Date History of History of Disease Active M D cancer cancer 8- Anderso metastatic metastatic 00:00: n to bone to bone 00 Malignant Malignant Disease Active 2020-0 MD tumor of tumor of 01-17 Tom o unknown unknown 00:00: n origin origin 00 Allergies, Adverse Reactions, Alerts Allergy Allergy Status Severity Reaction(s) Onset Inactive Treating Comm ents Source Name Type Date Date Clinician alura RAMOS Active [place] [facility]- [facility] [place] Social History Social Habit Start Date Stop Date Quantity Comments Source Sex Assigned At MD Santos on Exposure to Not sure MD Tierney SARS-CoV-2 (event) Tobacco use and 2020-01-03 2020-01-03 Never used MD Santos on exposure 00:00:00 00:00:00 Alcohol intake 2020-01-03 2020-01-03 Lifetime MD Romero n 00:00:00 00:00:00 non-drinker (finding) Smoking Status Start Date Stop Date Source Never smoker MD Tierney Medications Ordered Filled Start Stop Current Ordering Indication Dosage Frequency Signature Comments Components Source Medication Medication Date Date Medication? Clinician (SIG) Name Name acetaminoph 2020-0 Yes 1000mg Take 1,000 MD en 8-07 mg by Anderso (TYLENOL) 15:24: mouth n 500 mg 34 every 6 tablet (six) hours as needed for mild pain. ondansetron 2019-0 Yes Malignant Take 1 MD (Zofran) 8 807 tumor of tablet by Anderso mg tablet 00:00: unknown mouth n 00 origin every 8 hours for 3 days on days 2, 3, and 4 following chemothera py, then may take 1 tablet by mouth every 8 hours as needed for nausea or vomiting. prochlorper 2020-0 Yes Malignant 10mg Take 1 MD azine 8-07 tumor of tablet (10 Kenny rso (Compazine) 00:00: unknown mg) by n 10 mg 00 origin mouth tablet every 6 (six) hours as needed for nausea or vomiting. morphine 2020-0 Yes Malignant 15mg Take 1 MD (MS Contin) 8-07 tumor of tablet (15 Anderso 15 mg ER 00:00: unknown mg) by n tablet 00 origin mouth every 12 (twelve) hours. oxyCODONE 2020-0 2020- No Malignant 10mg Take 1 MD (OxyCONTIN) 8- 08-07 tumor of tablet (10 Anderso 10 mg 12 hr 00:00: 00:00 unknown mg) by n tablet 00 :00 origin mouth every 12 (twelve) hours. oxyCODONE 2019-2019- No Malignant 10mg Take 1 MD (OxyCONTIN) 01-15 tumor of tablet (10 Anderso 10 mg 12 hr 00:00: 00:00 unknown mg) by n tablet 00 :00 origin mouth every 12 (twelve) hours. oxyCODONE 2019-2019- No Malignant 5mg Take 1 MD (ROXICODONE 01-15 tumor of tablet (5 Anderso ) 5 mg 00:00: 00:00 unknown mg) by n immediate 00 :00 origin mouth release every 6 tablet (six) hours as needed for severe pain. HYDROcodone 2019-0 Yes Malignant 1{tbl} Take 1-2 MD -acetaminop 7-21 tumor of tablets by Heather henson (NORCO) 00:00: unknown mouth n 5 mg-325 mg 00 origin every 6 per tablet (six) hours as needed for moderate pain. vancomycin 2020-0 Yes 1{capsu Take 1 MD (VANCOCIN) 7-09 le} capsule by And erso 125 mg 00:00: mouth n capsule 00 daily. omeprazole 2020-0 Yes 1{capsu Take 1 MD (PriLOSEC) 6-02 le} capsule by And erso 40 MG 00:00: mouth n capsule 00 daily. levothyroxi 2020-0 Yes 1{tbl} Take 1 MD ne 5-30 tablet by Andersrey (SYNTHROID, 00:00: mouth n LEVOTHROID) 00 daily. 50 mcg tablet Vital Signs Vital Name Observation Time Observation Value Comments Source HEIGHT 2020-01-22 09:42:00 163.5 cm WEIGHT 2020-01-22 09:42:00 53.7 kg HEIGHT 2020-01-22 09:42:00 163.5 cm WEIGHT 2020-01-22 09:42:00 53.7 kg WEIGHT 2020-01-19 10:22:00 54.3 kg WEIGHT 2020-01-19 10:22:00 54.3 kg HEIGHT 2019-12-26 10:18:59 162.5 cm WEIGHT 2019-12-26 10:18:59 54.8 kg HEIGHT 2019-12-26 10:18:59 162.5 cm WEIGHT 2019-12-26 10:18:59 54.8 kg Body height 2020-01-22 14:42:00 163.5 cm Catalinocris sheikh Body weight 2020-01-22 14:42:00 53.7 kg Catalinocris sheikh BMI 2020-01-22 14:42:00 20.09 kg/m2 MD Catalino sheikh Systolic blood pressure 2020-01-22 14:28:18 131 mm[Hg] MD Tierney Diastolic blood pressure 2020-01-22 14:28:18 72 mm[Hg] MD Tierney Heart rate 2020-01-22 14:28:18 92 /min MD Catalino sheikh Body temperature 2020-01-22 14:28:18 36.78 Madhavi MD Ally alvarez Respiratory rate 2020-01-22 14:28:18 16 /min MD Ally alvarez Oxygen saturation in 2020-01-22 14:28:18 98 /min MD Tierney Arterial blood by Pulse oximetry Procedures Procedure Date / Time Performed Performing Clinician [facility] e CANCER ANTIGEN 125 2020-01-19 17:37:00 Michael Loomis MD And tangela COMPLETE BLOOD COUNT W/ 2020-01-19 17:37:00 Michael Loomis DIFFERENTIAL BASIC METABOLIC PANEL, CALCIUM 2020-01-19 17:37:00 Jordi Loomis MD TOTAL BILIRUBIN TOTAL 2020-01-19 17:37:00 Michael Loomis MD on ALANINE AMINOTRANSFERASE 2020-01-19 17:37:00 Michael Loomis MD ASPARTATE AMINOTRANSFERASE 2020-01-19 17:37:00 Michael Loomis MD MAGNESIUM LEVEL 2020-01-19 17:37:00 Michael Loomis MD on Results CBC 2020-01-19 17:37:00 Michael Loomis MD on MANUAL DIFFERENTIAL 2020-01-19 17:37:00 Michael Loomis MD GLUCOSE LEVEL 2020-01-19 17:37:00 Michael Loomis MD on BLOOD UREA NITROGEN 2020-01-19 17:37:00 Michael Loomis MD ELECTROLYTE PANEL 2020-01-19 17:37:00 Michael Loomis MD Kenny rson SERUM CREATININE 2020-01-19 17:37:00 Michael Loomis MD .GLOMERULAR FILTRATION RATE 2020-01-19 17:37:00 Michael Loomis MD CALCIUM LEVEL TOTAL 2020-01-19 17:37:00 Michael Loomis MD IR CT GUIDED BIOPSY PELVIC 2020-01-03 16:16:28 Michael Loomis MD NON-BONE PATHOLOGY BIOPSY 2020-01-03 15:55:00 Michael Loomis MD Catalino kori INTERPRETATION PROTHROMBIN TIME 2020-01-03 14:24:00 Isiah Kaur MD HEPATITIS C VIRUS ANTIBODY 2019-12-28 13:34:00 Michael Loomis MD HC HIV 1/2 AG AND AB 4TH GEN 2019-12-28 13:34:00 Michael Loomis MD HEMOGLOBIN A1C 2019-12-28 13:34:00 Michael Loomis MD on GLUCOSE, RANDOM 2019-12-28 13:34:00 Michael Loomis MD Tom on BLOOD UREA NITROGEN 2019-12-28 13:34:00 Michael Loomis MD SERUM CREATININE 2019-12-28 13:34:00 Michael Loomis MD Catalino kori FRACTIONATED BILIRUBIN 2019-12-28 13:34:00 Michael Loomis MD ALANINE AMINOTRANSFERASE 2019-12-28 13:34:00 Michael Loomis MD ASPARTATE AMINOTRANSFERASE 2019-12-28 13:34:00 Michael Loomis MD ELECTROLYTE PANEL 2019-12-28 13:34:00 Michael Loomis MD Kenny rson MAGNESIUM LEVEL 2019-12-28 13:34:00 Michael Loomis MD Tom on COMPLETE BLOOD COUNT W/ 2019-12-28 13:34:00 Michael Loomis DIFFERENTIAL ALBUMIN LEVEL 2019-12-28 13:34:00 Michael Loomis MD on CARCINOEMBRYONIC ANTIGEN 2019-12-28 13:34:00 Michael Loomis MD CANCER ANTIGEN 125 2019-12-28 13:34:00 Michael Loomis MD And erson INHIBIN B, SERUM 2019-12-28 13:34:00 Michael Loomis MD Catalinocris sheikh CANCER ANTIGEN 19-9 2019-12-28 13:34:00 Michael Loomis MD CANCER ANTIGEN 27 29 2019-12-28 13:34:00 Michael Loomis MD nderson SERUM CREATININE 2019-12-28 13:34:00 Michael Loomis MD .GLOMERULAR FILTRATION RATE 2019-12-28 13:34:00 Michael Loomis MD Results CBC 2019-12-28 13:34:00 Michael Loomis MD Tom on MANUAL DIFFERENTIAL 2019-12-28 13:34:00 Michael Loomis MD TMP HIV 1/2 AG&AB PATH INTERP 2019-12-28 13:34:00 Christi Loomis MD TMP HCVAB INTERP 2019-12-28 13:34:00 Michael Loomis MD TMP HBSAG INTERP 2019-12-28 13:34:00 Michael Loomis MD PETCT WB INITIAL TREATMENT 2019-12-28 12:44:09 Michael Loomis MD STRATEGY POC GLUCOSE SCREEN 2019-12-28 11:23:00 Michael Loomis MD And erson PATHOLOGY BIOPSY 2019-12-26 17:07:00 Michael Loomis MD INTERPRETATION HC 2019-NCOV COVID-19 2019-12-22 19:43:00 Michael Loomis MD OSI CT ABDOMEN AND PELVIS 2019-12-20 12:10:29 Michael Loomis MD Encounters Start End Encounter Admission Attending Care Care Encounter Source Date/Time Date/Time Type Type Clinicians Facility Department ID 2020-01-19 Outpatient MDA MDA [id number] 12:42:41 Heather callejas 2020-01-01 Outpatient JAN RICE MDA [id number] 08:14:45 DARSHANA callejas 2019-12-21 Outpatient JAN QUIÑONEZ MDA [id number] 12:16:30 STANFORD callejas 2020-02-12 2020-02-12 Outpatient CASEY LOOMIS MDA MDA [id number] 00:00:00 00:00:00 MICHAEL callejas 2020-02-12 2020-02-12 Outpatient CASEY LOOMIS MDA MDA [id number] 00:00:00 00:00:00 MICHAEL callejas 2020-01-22 2020-01-22 Outpatient EL BEVERS, MDA MDA [id number] MD 07:27:51 15:40:07 MICHAEL callejas 2020-01-22 2020-01-22 Outpatient EL BEVERS, MDA MDA [id number] MD 00:00:00 00:00:00 MICHAEL callejas 2020-01-19 2020-01-19 Outpatient EL BEVERS, MDA MDA [id number] MD 12:09:59 23:59:00 MICHAEL callejas 2020-01-19 2020-01-19 Outpatient EL BEVERS, MDA MDA [id number] MD 10:15:23 11:56:07 MICHAEL callejas 2020-01-03 2020-01-03 Outpatient EL BEVERS, MDA MDA [id number] MD 09:44:54 23:59:00 MICHAEL callejas 2020-01-03 2020-01-03 Outpatient EL KAUR, MDA MDA [id number] MD 09:15:51 09:43:00 ISIAH callejas 2020-01-03 2020-01-03 Outpatient EL BEVERS, MDA MDA [id number] MD 00:00:00 00:00:00 MICHAEL callejas 2020-01-01 2020-01-01 Outpatient EL BEVERS, MDA MDA [id number] MD 09:51:30 23:59:00 MICHAEL callejas 2019-12-28 2019-12-28 Outpatient EL BEVERS, MDA MDA [id number] MD 08:04:19 23:59:00 MICHAEL callejas 2019-12-28 2019-12-28 Outpatient EL BEVERS, MDA MDA [id number] MD 05:48:47 05:48:47 MICHAEL callejas 2019-12-28 2019-12-28 Outpatient EL BEVERS, MDA MDA [id number] MD 00:00:00 00:00:00 MICHAEL callejas 2019-12-26 2019-12-26 Outpatient EL BEVERS, MDA MDA [id number] MD 09:53:57 12:38:51 MICHAEL callejas 2019-12-26 2019-12-26 Outpatient EL BEVERS, MDA MDA [id number] MD 10:48:37 10:48:37 MICHAEL callejas 2019-12-26 2019-12-26 Outpatient EL BEVERS, MDA MDA [id number] MD 10:48:30 10:48:30 Tomraya callejas 2019-12-26 2019-12-26 Outpatient CASEY LOOMIS MDA MDA [id number] 09:52:09 09:52:18 Tom rey callejas 2019-12-22 2019-12-22 Outpatient CASEY LOOMIS MDA MDA [id number] 14:31:27 14:31:27 Tomraya callejas 2019-01-16 2019-01-16 [facility] [id number] 15:13:37 15:44:41 Visit [facility] [id number] Surgical [id number] Specialti [id number] es [address] [place] Results Test Description Test Time Test Comments Results Result Comments Source CA 125 2020-01-19 18:18:35 Test Item Value Reference Range Interpretation Comme nts CA 125 (test code = 5169) 132.6 U/mL <=38.0 H Re ference intervals are not available for m meliton patients. Results should be interpreted in conjunction with clinical context. Testi ng Performed at [facility] Lab [facility], [address], [place], [place] [address] Lab Interpretation (test code = Abnormal 67778-7) MD TierneyGlomerular Filtration [id number] 18:08:15 Test Item Value Reference Range Interpretation Comments eGFR-AA (test 104 >=60 mL/min/1.73 sq. Normal eGFR >= 60 code = 8062) m mL/min/1.73 m2 Note: The eGFR is calcula carlos using the CKD-EPI equ ation. The eGFR declines w ith age. eGFR <60 mL/min /1.73 m2 is considered as " decreased". This equation s hould only be used for pat ients 18 and older. Acco rding to the National Ki dney Foundation's Ki dney Disease Outcome Quality Initiative (KDO QI) classification and 2012 Kidney Disease Improving Global Outcomes (KDIGO) Clinical Practi ce Guideline, the stage of CKD should be c ategorized based on estima carlos GFR. Stage Descripti on GFR mL/min/1.73 m21 Normal or high GFR >=902 Mildly de creased GFR 60-893a Mildly to moder ately decreased GFR 45-593b Moderately to s everely decreased GFR 30-444 Severely decrea sed GFR 15-295 Kidney failure <15 Testing Performed at [facility] Lab [facility], [address] [place] [address], [address], [place] [address] eGFR-TERRY (test 90 >=60 mL/min/1.73 sq. Gloria l eGFR >= 60 code = 8063) m mL/min/1.73 m2 Note: The eGFR is calcula carlos using the CKD-EPI equ ation. The eGFR declines w ith age. eGFR <60 mL/min /1.73 m2 is considered as " decreased". This equation s hould only be used for pat ients 18 and older. Acco rding to the National Ki dney Foundation's dney Disease Outcome Quality Initiative (KDO QI) classification and 2012 Kidney Disease Improving Global Outcomes (KDIGO) Clinical Practi ce Guideline, the stage of CKD should be c ategorized based on estima carlos GFR. Stage Descripti on GFR mL/min/1.73 m21 Normal or high GFR >=902 Mildly de creased GFR 60-893a Mildly to moder ately decreased GFR 45-593b Moderately to s everely decreased GFR 30-444 Severely decrea sed GFR 15-295 Kidney failure <15 Testing Performed at [facility] Lab [facility], [address], [address], [place] [address] MD [id number] 18:08:14 Test Item Value Reference Range Interpretation Comments Magnesium (test code = 2.1 mg/dL 1.6-2.6 Testi ng Performed at 6359) [facility] Lab [facility], [address] [place] [address], [address], [place] [address] MD TierneyCalcium [id number] 18:08:13 Test Item Value Reference Range Interpretation Comments Calcium Lvl (test 9.6 mg/dL 8.4-10.2 Testing Pe rformed at code = 5258) [facility] Lab [facility], [address] [place] [address], [address], [place], [place] [address] MD TierneyBilirubin, [id number] 18:08:12 Test Item Value Reference Range Interpretation Comments Bili Total (test code <0.3 <=1.2 mg/dL Testin g Performed at [facility] = 5096) Lab [facility] [employer] [facility], [address], [address], [place] [address] MD [id number] 18:08:11 Test Item Value Reference Range Interpretation Comments AST (test code = 4731) 47 U/L <=32 H Testi ng Performed at [facility], [address], [address], [place] [address] Lab Interpretation (test Abnormal code = 34525-5) MD [id number] 18:08:10 Test Item Value Reference Range Interpretation Comments ALT (test code = 4705) 48 U/L <=33 H Testi ng Performed at [facility] Lab [facility], [address], [address], [place] [address] Lab Interpretation (test Abnormal code = 60640-1) MD TierneyElectrolyte [id number] 18:08:09 Test Item Value Reference Range Interpretation Comments Sodium Lvl (test code = 134 136- 145 mEq/L L Te sting Performed at 7355) [facility] Lab [facility], [address], [place] [address] Potassium Lvl (test code 4.5 3.5- 5.1 mEq/L T esting Performed at = 6854) [facility] Lab [facility], [address], [place] [address] Chloride (test code = 100 98- 107 mEq/L Testi ng Performed at 5279) [facility] Lab [facility], [address], [place] [address] CO2 (test code = 5227) 25 22- 29 mEq/L Testi ng Performed at [facility] Lab [facility], [address], [place] [address] Anion Gap (test code = 9 4- 14 mEq/L Testi ng Performed at 9325) [facility] Lab [facility], [address], [address], [place] [address] Lab Interpretation (test Abnormal code = 60096-3) MD Tierney.Serum [id number] 18:08:08 Test Item Value Reference Range Interpretation Comments Creatinine (test code 0.66 mg/dL 0.51-0.95 Testin g Performed at = 5399) [facility], [address], [address], [place] [address] MD [id number] 18:08:07 Test Item Value Reference Range Interpretation Comments BUN (test code = 17 mg/dL 6-23 Testing Per formed at [facility] 5055) [facility] [employer] [facility], [address], [address], [place] [address] MD TierneyGlucose [id number] 18:08:06 Test Item Value Reference Range Interpretation Comments Glucose Level (test code 110 mg/dL 70-99 H Ref erence range is = 5699) valid for fasti ng specimens only. Guidelines established by the [place] [employer] es [employer] guidelines (Standards of Medical Care in Diabetes 2016. Diabetes Care 2 016; 39: S13-22) are that a fasting gluco se of greater than or equal to 126 mg /dL or a random glu cose greater than or equal to 200 mg /dL with symptoms, that are confirmed b y repeat testing on a different day, meet the criteria fo r diabetes mellit us. Testing Perform ed at [facility] Lab [facility], [address], [place] [address] Lab Interpretation (test Abnormal code = 51219-3) MD Tie[id number] 17:44:14 Test Item Value Reference Range Interpretation Comments Neutrophil % (test code 88.1 % 42-66 H As p art of = 6491) Differential performed at [facility] Lab [facility] [employer] [facility], [address], [place] [address] Lymphocyte % (test code 5.1 % 24-44 L = 6194) Monocyte % (test code = 6.0 % 2-7 6422) Eosinophil % (test code 0.2 % 1-4 L = 5520) Basophil % (test code = 0.2 % 0-1 5068) IGRE % (test code = 0.4 % 0-0.4 IGRE % c ount includes 5958) Metamyelocytes, Myelocytes, and Promyelocytes. As part of Differe ntial performed at [facility], [address], [place] [address] Neutrophil Abs (test 7.13 K/uL 1.7-7.3 code = 6492) Lymphocyte Abs (test 0.41 K/uL 1-4.8 L code = 6195) Monocyte Abs (test code 0.49 K/uL 0.08-0.7 = 6423) Eosinophil Abs (test 0.02 K/uL 0.04-0.4 L code = 5521) Basophil Abs (test code 0.02 K/uL 0-0.1 = 5069) IG Abs (test code = 0.03 K/uL 0-0.04 5954) Lab Interpretation Abnormal (test code = 25881-9) MD Tierney.[id number] 17:44:12 Test Item Value Reference Range Interpretation Comments WBC (test code = 8034) 8.1 K/uL 4-11 RBC (test code = 6932) 3.75 4.00- 5.50 M/uL L Hgb (test code = 5898) 10.6 12.0- 16.0 gm/dL L A s part of CBC or as an individual orderable testi ng performed at [facility], [address], [place] [address] Hct (test code = 5860) 34.6 % 37-47 L As pa rt of CBC or as an individual orderable testi ng performed at [facility], [address], [place] [address] MCV (test code = 6222) 92 fL 82-98 MCH (test code = 6220) 28.3 pg 27-31 MCHC (test code = 6221) 30.6 31.0- 36.0 gm/dL L RDW-SD (test code = 43.8 fL 35.1-46.3 6972) RDW-CV (test code = 13.0 % 12-15.5 6971) Platelet count (test 285 K/uL 140-440 As part of CBC or as code = 6832) an individual orderable testi ng performed at [facility] Lab [facility] [employer] [facility], [address], [place] [address] MPV (test code = 6282) 8.4 fL 4-10.4 INRBC (test code = 0.0 % <=0.0 The INRBC (instrument 5974) NRBC) value ref lects the enumeration of nucleated red b lood cells contained in a 200uL sampleof whole blood analyzed by the instrument. Thi s value maydiffer from the NRBC value reported in a m anual differential,wh ich is based on a 100 cell differential. A s part of CBC testing performed at [facility] Lab [facility] [employer] [id number], [place] [address] Lab Interpretation Abnormal (test code = 72919-6) MD TierneyPathology Biopsy [id number] 20:50:00 Test Item Value Reference Range Interpretation Comments Diagnosis (test code = 34) u3gmnOBoHARrmYD5IMJ iNVEbg3kqw8TzlAZwfE DrZMcmdWRovcCyey87m XL9mG87FO0cJAYjKvL6 TZChtjS6Aeu6DCNiLBR xxBBuJ467f1usk9wcmr OqiSM6vWgiGKJmWJyiJ fKfPEZuYEntMEyufL70 BzEljWxxpP7uBdDlWKZ BLiBSSUdIVCBQRUxWSU LdNvoWKFTQQxmphU7hL YtLV2fjG3HWHSXxB4YS U1vFL20KHZOFVSIHClZ IPXKRVYYxS5CEF9jWG5 6CWdNiD1RVFWJXEP6SX lQpXHBhclxwYXJcbGkw CXPcOUllqO6kFVFAQW4 MQVxwYXJccHJvdGVjdH yoWxaoiBZ2OVmpFyequ U0bnGKTIXCTBptLBpxy cpIiXF8JTL3IQgFOBC2 1FQJ4LJaIP6i0LLs2vQ X6fY97GBYsWEAvhMHvJ RnzI819Kpn7BrWGTRyr DlhiqMA1PVhvPzxpcU2 zdCBIWVBFUkxJTksgbm AwQV7RMK6LWF0NzFriw IJ6Jf4LfXH2fFxdqJw4 r3majSZrk0x2ECxjIZR 9fVxwbGFpblxmczIwIC BccHJvdGVjdHtcZmllb CW8MJayXrvelJ4dlSES WVBFUkxJTksgbmFtZT1 WKK8URmPCYC91LZOcFu Q9CnnBL1HBXYEOZIY5J Si7aZM0iK10RPNqJQJp nACvHQvcP129MZnpDdb pGzY9CIUuULazo5baMR SpKCtta8WiRHyGPLQOV V8ZFV8yxGL5GCkUX3PP PYo8VRG5LldxxSFNMEO KKDAGPHegiJm2QQi7nS tcZmxkcnNsdCBcJzFjf C0lpSmlsD1zOaGfBHud YXJccGFyfQ== Comment (test code = 9835) p0epkMQoUJGfkKO6OZR kQMGsq8fkh7UznFIpxJ YiATyjdZYujlWqhw66k LX6tD23GK6bZFZeFtT5 DOUosaE1Wdc4NEDwYJC wlNKkO432b3fjj5omsy JcqKL3xNhnYQZlRNToI HluIGBeAgDoIR0nqX8p hQkiiH4smRFndIJcxKI zdGFpbnMgYXJlIHBlcm Wlcn8sHQKrkgHmc2dou sV7sLIjxxZhdDupz0Eb JpJjYJavupA5lrSbTIL fb2YyiBg7JXAss0DcS7 d2t4eqquB2gO4sUS08J EVcJHDkEVV7lp0aKrra ZGlmZnVzZSksIFBBWC0 1FBDQHjAuOVYvEIKyz3 QxstM8NRE9qjRtuPBzn vwzUOCGGX9vROMayVGz u2RwCVFinoY6OJItouE hVU3AODOxVNA7vUwhPV QcRRoxgIa5MSPss1Poi XZyKUTvYSFpHLOnEF96 hOdhrXxogy80hBRmUM9 wKW1qo6j1uSJenFAhsP KrjlD3sF4fARTiyrPGN pSPVQHfh8esv3Lpkg0j qZ0azBIiwmByb8thtaP gdj7oSO6bgZnzvmIyz2 KdgSaeYYR5lX6kGRLaq 6wyd7V3WM2utDGsTA1g FGZrSC1hxROeb74zzON cDDZ1gLUlfohbbS25ZM LphlsyaAeaSRqbe9Qsi L6vcGIuRU2gDGdirRJd q8tlc7MyN2clqYgbKWn dJzkpKNejX2DqbB7msU QiHRUlnwMtZDmfO1sgI 6PyKXJlx3Kli2EcQKEl oeIvfo5iGJ0fkHEvjG= = Gross Description (test j3wskIHbSTDqi0sgUAD code = [id number]) nYwJdOKRFe5tat007yY YhEBntQxDoGbY2oPSxU ILnhSTla7I3KNyxnAFh EkXBzztqyLv7o4kwN9x vho3mJZ0oKvMgCMCjDH QwXGZwcnEyIFRpbWVzI R2aadWOo70qkuo8q9er KKrcxY9kYYUeLZVayGH lw1K3ZNckkDZzLBRUj5 NqyVJhQH6evcn0o7iwV Yzkt4jfj1IzCiPwMXTf ZXQwXGZwcnEyIEFyaWF zIO9jnnDfwop0j5nvEE KoJa0aZYMxlsbdL4inf fMoqHFkFlHydSYrF694 scjbrgu4k4ydAAZsDm4 xvLyjZ3kkukOlpGCzXi BycTIgVHJveSBNaWNyb vMieBV7bZrnRmKtTEAp r98krhkyC6bgwrHzdCF kBpLvxHAqK2rhDd1sL5 68AFVgEXyyb4gzg1AeE mNoYXJzZXQwXGZwcnEy CDXvN25iFHFQV306UQD nHOFmVEYlr8emc0akU3 hhcnNldDBcZnBycTIgQ FYpAOf3rA7Hr2zyb0kb gcFlkPB0IBQsLQJjI6N nHQ5wZANpaSAgM3ocKT KiMExntpApexN5KVYgq HIjMDsqorIdYjZiJ2Fs ZC3aSKldnSQjRvE5ZKD lJIS3TMbcLYReLOjwHa m9XRJ5G4bvQCR5O6azq aCmukSpMIVwoSX4Wktw xuGwPeqsD5OfTM03DMz baYXzZfj4AZHsQLk6CG jtDDOtWEYfDzt0MBv2G 5asRXGuWYBtW2GeOR4x IHVaTjz6PXTmXQtmddM tRCX9SXkmDEKlKJG9QU VaoPHxEak1GVNuKPI3Q 5dslmOzkfG2Q0kbfIEl EKJwP7wcKGHmXKqsK1E yVI3oNSjuIsn4QMH5ZY hrtnHbNDo1FWatVWWnA Jc8LTUzdYEgYuH7KUIq IXH3AMkodxKxboD9OPs ywAQoNJhwB2pePCBaCT vgE0OhGN8rRSpsCqq6M TIwNztccmVkMjIzXGdy ZWVuMjIzXGJsdWUyMjM 7XHJlZDIzOVxncmVlbj HgGTjwzGMsKdT6U9sbE YPnCQAqT4DsRX2kABMm Dvo9GZZ7FZjhbgUnIWf yltNijyAjFza1RRK6TL h1Palfi5S5sXYygCWvt HtcczEgaGVhZGluZyAx L682UPXgUHubNJRoltf gCsg0s2jwTySiHXPybX 0lBJE3tTfxuzArdDEiQ UfiEyT9V146ZYG1GUrd SWVgjmvxCMq5s2ojNzB fPDWvxM1wWGM6kR3YGt kwNWRosgxuAYf8IWofJ TNwtzqpYcN2YWhjPUPy gSk9YSecEUYjggX8Stn tYXJndDcyMFxtYXJnYj rgYPhjJPZbKXL6HxRkA WOsp5Bhafm6OgIwBqMx KWPERyfghDXxDEO4IXY 0ZjFcZXBpYzkxMDFcYW 5nkOkmqKp7qXytNIBfi sR2rCRsARiim4gjWLP3 n5ajjmytOPVzQWtrQv5 udHRibHtcZjAgQXJpYW z4rD10KIDjiQ7qsSNqS Wj0JGIejjFioDwytY1n ZnMyMCBBLiBSSUdIVCB QRUxWSUMgQklPUFNZOi WIlLi6iJPpLTVst8Hyw dAuBoIxzZ7vTOMsZxNy pXkis1VlZUKoKVBuOGx ncmVnYXRlIHRvIDEuMi R3BYZcPCS1GYYlMZSql I4lBGBbaYxbGDq7ONL4 Hl5aeXTfPJSryvFGZK3 kuZDfvRYtsWzfrc77VT G1MKEPEoruol46YUY1T UFjsQljyI0oMwLoWitn OZZ6LSSeec3JvR== Disclaimer (test code = [id number] [id number]) mLDRlIHCel9cbPBMhzC FuZzEwMzNcZnRuYmpcd DKqIERnZfQwy0hhn400 bMFpw9vuYEDkEqX8aKO jNJTwiBKjL613EECfPU olo0agr5QrPSAqlQTpx 6M7FVHGpmahpTe5jLhf O32zt4U0RcdhL1irZEL rBUVxO1KxAA4iDKIcRl s9PRY5QBJ1UQFbCVKdI 4BjPQ0aJJQtzYYsVQm6 w3gfwLoqVQIeIXM2h3a iZMgvxmNjLJ2ovt3dmP a0s9pdflUnQQHdEDOli YXKWVKxC7FutCmmTy6e dEm2eXutWvvlDNA1Yes 5CC4cjp30tej5aCorVX NbmbgvRxQ3HDdqPGMkg pydHZd3XWibCQQghNB9 MAMkvURwQ8ZdUPXrLQ6 rena1OZT9FCapSPWiRi Z1ZMDenABsOVPsaGdkV Aysd777LYM8LxDkIO9m R1Qop4J8kE7ynKWpKZZ nbJJkFfFpYQFckf0hoD JhLKisa7KpAKI7azF5r EHhnJZlRREhDD25Xiam a0AqDsokCUK3TDFfuoN rz0Uyb4inVnOyorNmB4 wvE5ZoIHLbRJReWTEsP bAtlsUtr5Psx9FrdFKa jKp3d4dvOGByOCTnzAg ty0tcDFF9NSJcY1M2uQ Fnl7oxKFnvYSXhyJE0l vN2VVBpmHQvN6XcsR4o SDVbYI4zulo4q2loETY 2DOibPZGyAjN8xtG2XV BcaGVhZGVyeTcyMFxmb 711USF7ToTcWVZiv3Pv B4OzzYylW24pzFohI77 zPGDznFtngT4osSvjkA 5cZjBcZnMyNFxxbFxwb MQvbwcuFUhxtkI5FUoq ttjjGZChUSuzP0zzWcR aXQPceYswSGznz5GqJE VtTKMbGhuoglQ1LKLUh 40wSAKba5SzICVqfJ1s aDZqVDshhjGqjXW0XLc hdmUgYmVlbiBkZXZlbG 5jWUMfJK1mTKYrmgIxz s9qxbUmVPTkWBUwU3Sr cmlzdGljcyBkZXRlcm1 obxHmQIP2ILUXPP1LWF KuRUDpt47wVYSgbQjmi T1otEChvgWyGTQlm2Qw eJ2owCNMCSPgF5dbQS7 eFYhuo6IzhRNfzHZjtZ J2JFDqn9XkOeJyaeYas IOyzECwS7FaeMkmQ4tu JRMaDASusiTltTZvc9N eEDSgrQW0cYRoWM2UJm IXh64fCZOxYBRNrvNoM VSjeWwjdBN7ouW8lE8u LiBJZiBhcHBsaWNhYmx tWHHkx703ez3cpeU2PN IlFLCouppnj5YoHNQwS AFaiS18PEByFXNpns8v jytslTLuqpWtL3Ronfb 7cT1vQKOtKGcwSGQlKJ ZzMjJcbGFuZzEwMzNca GljaFxmMVxkYmNoXGYx MIxwB3axEpVpNtHjWil wYXJ9 MD TierneyInhibin [id number] 20:46:04 Test Item Value Reference Range Interpretation Comments Inhibin B-Patiño <10 pg/mL -------REFERENCE (test code = VALUE 68667-2) --<139 (Premeno pausal, Follicular)<92 (Premenopausal, Luteal)<10 (Postmenopausal ) ----ADDITIONAL INFORMATION---- -The testing me thod is a manual immunoen zymatic assaymanufactur ed by [employer] V alues obtained withdifferent a ssay methods or kits may be different and cannotbe used interchangeably . If this test is being ordere d as atumor marker, results cannot be interpreted as absoluteevidenc e for the presence or abs ence of malignant disea se.This test was developed a nd its performance characteristics determined by [facility] in a manner consistent with CLIArequirement s. This test has not been cl eared or approved bythe U.S. Food and Drug Administra tion. Test Performed by:[facility] [address] [facility] [address] , [place], [place] [address]Slo Direct or: Chato Kilpatrick M.D. Ph. D.; CLIA# [id number] [facility] CT GUIDED BIOPSY PELVIC [id number] 16:33:20Date of Procedure: 01/03/20 Attending Physician: Chaz Vásquez M.D. Building Rental Manager: Alicia and Lopez Augustine Pre Procedure Diagnosis: Malignant tumor of unknown origin Post Procedure Diagnosis: Unchanged Indication: New mass / nodule for tissue diagnosis The patients clinical history was reviewed in detail. On the basis of available clinical data, the procedure noted above is medically necessary to diagnose or correct a serious medical condition. The patient is at risk for cancer progression or decline in their medical condition if the procedure is delayed . Protocol Number: N/A Title of Procedure:Percutaneous Computed Tomography-Guided Biopsy Operative Findings: Percutaneous image-guided biopsy of 3cm right pelvis lesion. Consent: The procedure, risks, indications and alternatives were explained. All questions were answered and informed consent was obtained. I have reviewed the history and physical dictated by the mid- level practitioner / fellow. Sedation/Anesthesia: Moderate sedation for pain control and anxiety was administered by a dedicated nurse under my supervision. There was continuous monitoring of oxygen saturation, heart rate and intermittent monitoring of blood pressure during the procedure. Medication given was midazolam and fentanyl. I was present for the administration of the medications indicated above.Procedure Events Event Event Time Sedation Start 01/03/202010:55 AM Sedation End 01/03/2020 11:09 AM Procedure in Detail: A time out was performed prior to the start of the procedure and the correct patient, procedure, presence of consent, site, and side were confirmed with all members of the team. With the patient in the supine position, the skin overlyingthe area of interest was prepped and draped in the usual sterile fashion. Lidocaine 1% was used forlocal anesthesia. Using an anterior approach under Computed Tomography image-guidance, a 17 gauge needle was advanced down to the right pelvis. An image was obtained and placed into the medical record.Samples were obtained for evaluation. Sampling: Core Biopsy: An 18 gauge needle used to obtain samples for surgical pathology evaluation. Total number of samples: 4 Specimens Disposition: Diagnostic Biopsy: The biopsy samples were submitted to pathology. Additional Comments: None Estimated Blood Loss: Minimal Immediate Complications: None Disposition: PACU Plan: 1. No follow-up with Interventional Radiology required.MD TierneyProthrombin [id number] 15:14:37 Test Item Value Reference Range Interpretation Comments PT (test code = 12.6 12.0- 14.3 second(s) Test ing Performed atACB 5902-2) [facility] [address] [place] [address] INR (test code = 0.99 0.90-1.10 Testing Per formed atACB 6301-6) [facility] [id number] [facility] [place] [address] MD TierneyCA [id number] 15:10:15 Test Item Value Reference Range Interpretation Comments Breast CA 23.7 <=38.0 unit/mL -------ADDITIONAL 27.29-[place] (test INFORMATION Th code = 01264-3) e testing me thod is a chemiluminometr ic immunoassaymanu factured by [employer] and per formed on the [employer] entaur. Values obtained with d ifferent assay methods or kits may bedifferent and cannot be u sed interchangeably . Test results cannot be inter preted as absolute eviden ce forthe presence or abs ence of malignant disease. Test P erformed by:[facility] [address] Director: Chato frost M.D. Ph.D.; CLIA# [id number] 2 MD Hendricks HIV 1/2 Ag&Ab Path [id number] 12:03:52 Test Item Value Reference Range Interpretation Comments HIV 1/2 Ag&Ab Negative for Interp (test HIV-1 antigen and code = 9394) HIV-1/HIV-2 ____RASHMI CARDOZO [place] - [place]. [place] [id number] by: RASHMI ANTONIO MD - evidence of HIV 63630Uxikhkr d Date/Time: infection. If 12.29.2019 7:0 3 AM CDT acute HIV Transcribed Willian e/Time: infection is 12.29.2019 7:03 AM suspected, CDTElectronical ly Signed consider testing By: RASHMI ANTONIO MD - for HIV-1 RNA. [id number] on 7:03 AM Nae Hendricks HCV Ab Path [id number] 12:03:51 Test Item Value Reference Range Interpretation Comments HCV Ab Path There is NO Interp (test serologic code = 8923) evidence of ____RASHMI CARDOZO MD - Hepatitis C 39975Fyregbmi b y: RASHMI virus antibody. GRACE ANTONIO MD - 52531Gammgwhl D ate/Time: 12.29.2019 7:03 AM CDT Transcribed Willian e/Time: 12.29.2019 7:03 AM CDTElectronical ly Signed By: RASHMI CARDOZO MD - [id number] on 12.28 7:03 AM Nae Hendricks HBsAg Path [id number] 12:03:50 Test Item Value Reference Range Interpretation Comments HBsAg Path There is NO Interp (test serologic code = 8922) evidence of ____RASHMI CARDOZO MD - detectable [id number] b y: RASHMI Hepatitis B virus Mark VASQUEZ D - surface antigen. 59780Jifjar ed Date/Time: 12.29.2019 7:03 AM CDT Transcribed Willian e/Time: 12.29.2019 7:03 AM CDTElectronical ly Signed By: RASHMI CARDOZO MD - [id number] on 12.28 7:03 AM C MD Warren B Surface [id number] 06:03:49 Test Item Value Reference Range Interpretation Comments HBsAg. (test code Non Reactive Non Reactive Performed at: = 5747) [facility] [place] [address] MD Warren C Virus [id number] 06:03:46 Test Item Value Reference Range Interpretation Comments HCVAb. (test code Non Reactive Non Reactive Performed at: = 5762) [facility] [place] [address] MD TierneyHIV-1/2 Antigen and Antibodies, Fourth [id number] 02:47:48 Test Item Value Reference Range Interpretation Comments HIV 1/2 Ag & Ab, Non Reactive Non Reactive Performed a t: 4th Gen (test code [facility] = 9280) [place] [address] MD TierneyPETCT WB Initial Treatment [id number] 00:30:05Intensely hypermetabolic right pelvic mass is not seen separate from the right ovary, and possibility of ovarian malignancy is not excluded. Alternatively, this may be metastasis. Intensely hypermetabolic peritoneal nodules predominantly in the lower abdomen and pelvis, along with hypermetabolic retroperitoneal nodes, several hypermetabolic bony lesions involving the pelvis, spine and thoracic bones as described, suspicious for peritoneal, jd and bony metastases. Interface, Radiology Results In- 12/28/2019 7:33 PM CDTFULL RESULT:Examination: FDG PET/CT, 12/28/2019 7:44 AMClinical History: Metastatic carcinoma of unknown primary.Indication: Initial PET/CT evaluation. Initial treatment strategy. Initial staging.Comparison: CT abdomen and pelvis dated 12/20/2019.Technique: F-18 fluorodeoxyglucose (FDG) 8.4 mCi was administered intravenously via left antecubital vein. To allow for distribution and uptake of radiotracer, the patient was asked to rest quietly for approximately 60-90 minutes. PET/CT imaging was performed from the vertex of the skull to feet. Recent serum blood glucose was 101 mg/dL. CT scanning was done for attenuation correction, image registration, and diagnosis with scan parameters optimized to minimize radiation exposure to the patient. SUV measurements are reported as maximum SUV based on body weight unless otherwise specified.Findings:There are several irregular nodular hypermetabolic foci in the bilateral posterior and lateral neck, supraclavicular fossa, and paravertebral regions of the chest, most of these in relatively symmetric distribution. These may be areas of brown fat activity. 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 A tiny nodular FDGavid focus in the left peribronchial region may be along the esophagus (image 178), and may be followed. No definite suspicious jd hypermetabolism. No pericardial or pleural effusion.Few tiny less than 0.5 cm bilateral pulmonary nodules (examples on series 555). The 14th No suspicious FDG avid hypermetabolic pulmonary nodule.Abdomen and Pelvis: Few small volume hypermetabolic retroperitoneal nodessuspicious for jd metastases. For example, the 2.3 x 1.6 cm aortocaval node with SUV max of 13.6 (image 305). Few hypermetabolic peritoneal and mesenteric nodules, predominantly in the lower abdomenand pelvis are suspicious for peritoneal carcinomatosis, for example the tiny right paratesticular nodule with SUV max of 6 (image 329), customer relations representative 2.9 cm left pelvic nodule with SUV max of 17.8 (image 380). Some of the implants are along the periserosal aspect of the rectosigmoid, and in the cul-de-sac.The 3.9 x 3.4 cm intensely hypermetabolic right pelvic mass with SUV max of 18.9 (image 362) is not seen separate from the right ovary, and possibility of ovarian malignancy is not excluded. Leftovary is prominent measuring 3 x 2.1 cm and contains fat and calcification along its posterior aspect suspicious for teratoma. This does not show suspicious hypermetabolism. 1.2 cm calcified uterine lesion, likely the fibroid.No focal suspicious hypermetabolic lesion in the liver, gallbladder, spleen,pancreas, adrenals.Musculoskeletal: Several intensely hypermetabolic bony lesions involving the spine, ribs, scapula, pelvic bones including sacrum corresponding to underlying sclerotic lesions, suspici ous for bony metastases. For example, the 1.8 cm left sacral ala lesion with SUV max of 6.5 (image 333). The 1.4 x 0.7 cm right distal medial thigh subcutaneous node with low-grade FDG activity may be reactive (image 528). Mildly hypermetabolic subcutaneous thickening in the left anterolateral dorsal foot (images 799) with SUV max of 3.6 may be posttraumatic/mechanical and correlated clinically.IMPRESSION:Intensely hypermetabolic right pelvic mass is not seen separate from the right ovary, and possibility of ovarian malignancy is not excluded. Alternatively, this may be metastasis.Intensely hypermetabolic peritoneal nodules predominantly in the lower abdomen and pelvis, along with hypermetabolic retroperitoneal nodes, several hypermetabolic bony lesions involving the pelvis, spine and thoracic bones as described, suspicious for peritoneal, jd and bony metastases.MD TierneyHemoglobin [id number] 15:41:00 Test Item Value Reference Range Interpretation Comments A1C (test code = 5.5 % 4.3-5.6 HbA1c value s >=6.5% are 4632) diagnostic of d iabetes mellitus.Diagno sis should be confirmed by repeat testing.Therape utic Action suggested: >8.0 % HbA1c; Goal oftherapy: <7.0% HbA1c MD TierneyCA [id number] 14:21:28 Test Item Value Reference Range Interpretation Comments CA 19-9 (test code = <2.9 <=35.0 U/mL Results greater than 9500 5171) U/mL may not be reliable due to matrix effec t with extended diluti on as it exceeds the man ufacturer s recommended l imit. Caution should be exerc ised when interpreting baxter ch values and done in conjunc tion with clinical contex t. Testing Performed at B [facility] Bldg, [address] [facility], [address], [place], [place] [address] MD [id number] 14:21:27 Test Item Value Reference Range Interpretation Comments CEA (test code = <1.9 <=3.8 ng/mL Reference R anges:Smoker 5203) 0.0 - 5.5 Test ing Performed at [facility] [facility], [address] [facility], [address], [place], [place] [address] MD TierneyFractionated [id number] 14:07:37 Test Item Value Reference Range Interpretation Comments Bili Total (test 0.4 mg/dL <=1.2 Testing Per formed at [facility] code = 5096) [facility], [address] [place] [address], [address], [place] [address] Bili Direct (test <0.2 <=0.3 mg/dL Indocyanin e Green (ICG) code = 5094) may cause false ly elevated biliru bin results. Total and direct bilirubi n must not be measured from samples contain ing indocyanine gre en. Testing Perform ed at [facility], [address] [facility], [address], [place] [address] Bili Indirect (test See Note 0-0.9 Unable t o calculate code = 5095) Indirect Biliru bin result due to s ome parameters are outside reportable rang eTesting Performed at [facility], [address], [place] [address] MD TierneyGlucose, [id number] 14:07:36 Test Item Value Reference Range Interpretation Comments Glucose Random (test 102 mg/dL 70-199 Effecti ve 01/08/16, the code = 9360) glucose referen ce intervals have been updated based o n [place] [employer] julissa delines (Standards of M edical Care in Diabete s 2016. Diabetes Care 2 016; 39: S13-S22)Fasting blood glucose:Normal: 70 99 mg/dLImpair ed fasting glucose (increased risk for diabetes or pre-diabetes): 100 125 mg/dLDiabe pebbles mellitus: >/= 1 26 mg/dLRandom blo od glucose:Normal: 70 199 mg/dLNote: Random glucose >100 mg /dL is associated with increased risk for diabetes Testin g Performed at [facility] Bldg, [address], [place] [address] MD TierneyAlbumin [id number] 14:07:33 Test Item Value Reference Range Interpretation Comments Albumin Lvl (test code 4.5 3.5- 5.2 gm/dL Pebbles ting Performed at [facility] = 4763) [facility] Bldg, [address], [place] [address] MD [facility]VER[facility] Glucose [id number] 11:30:34 Test Item Value Reference Range Interpretation Comments POC Glucose (test code = 101 mg/dL 70-99 H Cap illsavanna blood 50472-6) samples, e.g. obtained by fingerstick, ma y have inaccurate results in josef ents with decreased peripheral bloo d flow. PO Sample Type (test Venous code = 9554) Lab Interpretation (test Abnormal code = 88405-7) MD Jean CT Abdomen and [id number] 12:10:39For comparison only. No interpretation requested.MD Patel COVID-19 (PRAKASH-CoV-2) PCR Asymptomatic 2019-12-23 11:50:44 Test Item Value Reference Interpretation Comments Range COVID19 SARS New Patient Indication (test code = 96661) COVID19 SARS Result Not Detected Not Detected (test code = 89556-7) COVID19 SARS SARS-CoV-2 NOT Detected. Interpretation (test Reference Range: Not code = 96398) Detected Methodology: The Mckeon RealTime SARS-CoV-2 assay is a qualitative real-time reverse enterostomal therapy nurse polymerase chain reaction (city library director-PCR) test to detect RNA from SARS-CoV-2 in nasal, nasopharyngeal and oropharyngeal swabs from patients with signs and symptoms of infection who are suspected of COVID-19 by their health care provider. The Mckeon RealTime SARS-CoV-2 performed on the [employer]000 System is a dual target assay with primers and probes for the RdRp and N genes. Results must be interpreted within the context of all relevant clinical and laboratory findings, and epidemiological risk factors. Positive results are indicative of the presence of SARS-CoV-2 RNA; clinical correlation with patient history and other diagnostic information is necessary to determine patient infection status. Positive results do not rule out bacterial infection or co-infection with other viruses. Negative results do not preclude SARS-CoV-2 infection and should not be used as the sole basis for patient management decisions. The amBX RealTime SARS-CoV-2 assay is for in vitro diagnostic use under FDA Emergency Use Authorization only. Testing is limited to laboratories certified under the Clinical Laboratory Improvement Amendments of 1988 (CLIA), 42U.S.C. 263a, to perform high complexity tests. The Test was performed by the CLIA-certified, high-complexity Molecular Diagnostics Laboratory (MDL) at [facility] under the Food and Drug Administration (FDA) s Emergency Use Authorization. Factsheet for patients: https://www.[employer]ate.org/ AbbottFactSheetPatientsFact sheet for healthcare providers: https://www.Wor[employer]izendSkillSlate.org/ AbbottFactSheetHCP Test performed by:[facility] Diagnostic [id number] [place] [address] [facility]- CT ABD PELVIS W WO [id number] 15:25:00 Patient Name: ARTEM GODINEZ Unit No: [id number] EXAMS: CPT CODE: [id number] CT ABD PELVIS W WO CONT [address] PROCEDURE: CT ABDOMEN WITH AND WITHOUT CONTRAST, CT PELVIS WITH CONTRAST INDICATION: DORSALGIA AND HEMATURIA COMPARISON: There are no previous relevant studies available forcorrelation. TECHNIQUE: Helical imaging was performed diaphragm through the iliac crests prior to and following intravenous contrast administration with multiplanar reconstructions. Postcontrastimaging obtained during corticomedullary, nephrographic and excretory phases. Postcontrast imagesduring nephrographic and excretory phases continued through the symphysis. IV CONTRAST: 100 mL Isovue-300. GI CONTRAST: 40 mL dilute Gastrografin oral CT imaging performed at this location utilizesradiation dose optimization techniques which include one or more of the following: -Automated exposure control -Adjustment of the mA and/or kV according to patient size -Use of iterative reconstruction technique CT Radiation Dose DLP 642.41 mGy-cm LIMITATIONS: Precontrast images do not include the pelvis. FINDINGS: LOWER CHEST: The lung bases are clear. LIVER: Normal. BILIARY TREE: No biliary dilatation. GALLBLADDER: Normal. SPLEEN: Normal. PANCREAS: Normal. ADRENALS: Normal. KIDNEYS: Normal renal contours. No renal calculi, hydronephrosis or perinephric stranding. Symmetric renal cortical enhancement. Symmetric excretion into nondilated collecting systems. No mass [facility] NAME: ARTEM GODINEZ Radiology Department PHYS: Pola Chiang MD [address] : 1950 AGE: 69 SEX: F [place], [place] [address] LOC: F.RAD PHONE #: [phone] EXAM DATE: 12/20/2019 STATUS: REG CLI FAX #: [phone] RAD NO: Page 1 Signed Report 1 Patient Name: ARTEM GODINEZ Unit No: [id number]: CPT CODE: [id number] CT ABD PELVIS W WO CONT [address]1741 <Continued> effect or filling defect. Opacified portions of the ureters are unremarkable. There is a circumscribed low-attenuation lesion lateral cortex mid right kidney measuring 1.3 x 1.0 x 0.9 cm with attenuation values of approximately 24-25 Hounsfield units precontrast, 31-34 Hounsfield units postcontrast without visible enhancement or enhancement by threshold criteria compatible with small proteinaceous cyst. There is a 4 mm circumscribed low-attenuation lesion ventral cortex mid left kidney which is too small to accurately characterize, compatible with benign finding. There are no suspicious renal masses. The renal veins are patent. There is reflux of contrast into the left gonadal vein. BOWEL: The stomach, small bowel and colon are unremarkable. APPENDIX: No evidence for appendicitis. PERITONEUM: No free intraperitoneal fluid or air. RETROPERITONEUM: Scattered calcified plaque in the abdominal aorta. No aneurysm. The superior vena cava is unremarkable. There is a precaval mass at the level of aorticbifurcation measuring 2.1 x 1.5 cm, soft tissue attenuation with diffuse though heterogeneous enhancement. PELVIS: Reflux of contrast into the left gonadal vein with prominent bilateral parametrial vessels. There is a small left uterine body mass with coarse calcifications measuring approximately 1.3 x 1.2 cm compatible with involuted fibroid. There is a mixed attenuation left adnexal mass measuring 2.5 x 2.2 x 2.2 cm. Components of internal lipid attenuation, calcific density with intervening soft tissue attenuation components. There is no regional inflammation. There is a soft ti ssue attenuation focus in the right ovary estimated 3.2 x 3.0 cm. No lipid attenuation components. The right ovary is mildly enlarged estimated 5.3 x 3.8 x 3.0 cm. The partially contracted urinary bladder is unremarkable. No intraluminal filling defects or bladder calculi. There is no pelvic or inguinal lymphadenopathy. MUSCULOSKELETAL: There are multiple ill-defined sclerotic lesions in the spine. Extensive involvement of L1 vertebral body with indistinct margins, extending into theright pedicle. There is extraosseous soft tissue ventral epidural space up to 5 mm thickness. There is no central canal stenosis. Thecal sac estimated 14 mm AP. Extraosseous [facility] NAME: ARTEM GODINEZ Radiology Department PHYS: Pola Chiang MD [address] : 1950 AGE: 69 SEX: F [place], [place] [address] LOC: F.RAD PHONE #: [phone] EXAM DATE: 12/20/2019 STATUS: REG CLI FAX #: [phone] RAD NO: Page 2 Signed Report 1 Patient Name: ARTEM GODINEZ Unit No: [id number] EXAMS: CPT CODE: [id number] CT ABD PELVIS W WO CONT [address] <Continued> disease right anterior paraspinous up to 15 mm thickness. Indistinct lesion right posterior lateral L3 vertebral body. Extensive involvement of the L5 vertebral body. Indistinct disease of the sacrum. There is a small circumscribed sclerotic lesion left femoral head compatible with bone island. There are multilevel degenerative changes of the spine. No fracture or malalignment. IMPRESSION: 1. Multiple ill-defined sclerotic lesions of the spine compatible with metastatic disease. Extraosseous component at the L1 level with epidural extension. No gross canal stenosis. If indicated, further imaging options would include MRI of the thoracolumbar spine for further evaluation and bone scan to evaluate for extent of disease. 2. Retroperitoneal lymphadenopathy. 3. Right ovarian enlargement with possible soft tissue attenuation mass 3.2 cm diameter. 4. Apparent incidental left ovarian dermoid. 5. No urinary calculi or evidence for obstruction as a source of the patient's symptoms. 6. Incidental small proteinaceous cyst right kidney, Bosniak 2 and subcentimeter left renal cortical lesion compatible with benign finding. No further workup is required. 7. 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 Pelvic venous congestion not excluded. 8. Small calcified uterine fibroid. The findings were discussed with Pola Rendon MD on 12/20/2019 3:25 PM. SL: KIANAH at 1525 Reported and signed by: Phillip Reed MD CC: Pola Rendon MD; Pato Adams MD Technologist: Gladys Russell, RT, CT CTDI: 4.23 DLP: 642.41 Trnscrbd D/ (1525) t.VESNARJENNIFER [facility] NAME: [facility] Radiology Department PHYS: Pola Chiang MD [address] : 1950 AGE: 69 SEX: F [place] [address] LOC: F.RAD PHONE #: [phone] EXAM DATE: 12/20/2019 STATUS: REG CLI FAX #: [phone] RAD NO: Page 3 Signed Report 1 Patient Name: ARTEM GODINEZ Unit No: [id number] EXAMS: CPT CODE: [id number] CT ABD PELVIS W WO CONT [id number] <Continued> Orig Print D/T: S: 12/20/2019 (1528) [facility] NAME: [facility] Radiology Department PHYS: Pola Chiang MD [address] : 1950 AGE: 69 SEX: F [place] [address] LOC: F.RAD PHONE #: [phone] EXAM DATE: 12/20/2019 STATUS: REG CLI FAX #: [phone] RAD NO: Page 4 Signed Report 1
[2020-01-26] MEDS ORDERED: NA CHLORIDE 0.9% 1,000 ML ONE (13:23)
[2020-01-26] MEDS ORDERED: ONDANSETRON 4 MG/2 ML VIAL ONE (13:23)
[2020-01-26 13:41] LABS: Absolute Lymphocytes (CBC) 0.3 K/uL (0.7-4.9); Basophils % 0.3 % (0-1.3); Hematocrit 36.4 % (36.0-45.0); Lymphocytes % 6.6 % (15.3-44.8); MPV 7.7 fL (7.6-11.3); RBC Red Blood Cell Count 4.21 M/uL (3.86-4.86)
[2020-01-26 13:56] LABS: BUN Blood Urea Nitrogen 16 mg/dL (7-18); Bicarbonate 22 mmol/L (21-32); Glucose Level 107 mg/dL (74-106); Sodium Level 134 mmol/L (136-145)
--- NOTE | 2020-01-26 14:46 | ER ---
Nurse's Notes [facility] Name: Milka Quiroz Age: 69 yrs Sex: Female : 1950 Arrival Date: 01/26/2020 Time: 12:46 Bed 14 Private MD: Diagnosis: Nausea and vomiting Presentation: 01/25 13:02 Chief complaint: Patient states: Ovarian Ca, 1st chemo session last Wednesday the . ca1 Reports N/V x 2 days, feels dehydrated, unable to tolerate food and fluids, constipation. Coronavirus screen: Client denies travel out of the [place] in the last 14 days. At this time, the client does not indicate any symptoms associated with coronavirus-19. Ebola Screen: Patient negative for fever greater than or equal to 101.5 degrees Fahrenheit, and additional compatible Ebola Virus Disease symptoms Patient denies exposure to infectious person. Patient denies travel to an Ebola-affected area in the 21 days before illness onset. No symptoms or risks identified at this time. Initial Sepsis Screen: Does the patient meet any 2 criteria? No. Patient's initial sepsis screen is negative. Does the patient have a suspected source of infection? No. Patient's initial sepsis screen is negative. Risk Assessment: Do you want to hurt yourself or someone else? Patient reports no desire to harm self or others. Onset of symptoms was January 26, 2020. 13:02 Method Of Arrival: Wheelchair ca1 13:02 Acuity: JAYJAY 3 ca1 Triage Assessment: 13:05 General: Appears in no apparent distress. comfortable, slender, Behavior is calm, ca1 cooperative, appropriate for age. Pain: Denies pain. EENT: No deficits noted. No signs and/or symptoms were reported regarding the EENT system. Neuro: Level of Consciousness is awake, alert, obeys commands, Oriented to person, place, time, situation. Cardiovascular: Heart tones S1 S2 present Capillary refill < 3 seconds Patient's skin is warm and dry. Respiratory: Airway is patent Respiratory effort is even, unlabored, Respiratory pattern is regular, symmetrical, Breath sounds are clear bilaterally. GI: Abdomen is flat, non-distended, Bowel sounds present X 4 quads. Reports nausea, vomiting, since 2 days. : No signs and/or symptoms were reported regarding the genitourinary system. Derm: Skin is intact, is healthy with good turgor, Skin is pink, warm \T\ dry. Musculoskeletal: Circulation, motion, and sensation intact. Capillary refill < 3 seconds. Historical: - Allergies: 13:05 Codeine; ca1 - PMHx: 13:05 GERD; ovarian CA; ca1 - PSHx: 13:05 None; ca1 - Immunization history:: Adult Immunizations up to date. - Social history:: Smoking status: Patient denies any tobacco usage or history of. Screenin:08 Abuse screen: Denies threats or abuse. Denies injuries from another. Nutritional ca1 screening: No deficits noted. Tuberculosis screening: No symptoms or risk factors identified. Fall Risk IV access (20 points). Assessment: 13:08 Reassessment: See triage notes. GI: Abdomen is flat, non-distended, Bowel sounds ca1 present X 4 quads. Abd is soft and non tender Reports nausea, vomiting, since 2 days. 13:50 Reassessment: Patient appears in no apparent distress at this time. Patient and/or ca1 family updated on plan of care and expected duration. Pain level reassessed. Patient is alert, oriented x 3, equal unlabored respirations, skin warm/dry/pink. 14:16 Reassessment: Patient appears in no apparent distress at this time. Patient and/or ca1 family updated on plan of care and expected duration. Pain level reassessed. Patient is alert, oriented x 3, equal unlabored respirations, skin warm/dry/pink. PO challenge completed and tolerated. Notified provider. 14:55 Reassessment: Patient appears in no apparent distress at this time. Patient is alert, ca1 oriented x 3, equal unlabored respirations, skin warm/dry/pink. Patient states feeling better. Patient states symptoms have improved. Vital Signs: 13:02 BP 147 / 76; Pulse 100; Resp 18 S; Temp 98.7(O); Pulse Ox 99% on R/A; Weight 53.52 kg ca1 (R); Height 5 ft. 5 in. (165.10 cm) (R); Pain 0/10; 13:50 BP 139 / 61; Pulse 79; Resp 16 S; Pulse Ox 100% on R/A; ca1 14:58 BP 130 / 61; Pulse 82; Resp 16 S; Pulse Ox 100% on R/A; ca1 13:02 Body Mass Index 19.64 (53.52 kg, 165.10 cm) ca1 ED Course: 12:46 Patient arrived in ED. ds1 12:56 Kandi Lockwood, RN is Primary Nurse. ca1 12:56 [facility]C [facility]. kb 12:56 Corona Lenz MD is Attending Physician. kb 13:05 Triage completed. ca1 13:05 Arm band placed on right wrist. ca1 13:08 Patient has correct armband on for positive identification. Bed in low position. Call ca1 light in reach. Side rails up X 1. Pulse ox on. NIBP on. Warm blanket given. 13:13 Initial lab(s) drawn, by me, sent to lab. Inserted saline lock: 20 gauge in right dh3 antecubital area, using aseptic technique. Blood collected. 14:55 No provider procedures requiring assistance completed. IV discontinued, intact, ca1 bleeding controlled, No redness/swelling at site. Pressure dressing applied. Administered Medications: 13:14 Drug: NS 0.9% 1000 ml Route: IV; Rate: 1000 ml; Site: right antecubital; ca1 13:54 Follow up: Response: No adverse reaction; IV Status: Completed infusion; IV Intake: ca1 1000ml 13:16 Drug: Zofran (Ondansetron) 4 mg Route: IVP; Site: right antecubital; ca1 13:54 Follow up: Response: No adverse reaction; Nausea is decreased ca1 Intake: 13:54 IV: 1000ml; Total: 1000ml. ca1 Outcome: 14:45 Discharge ordered by . kb 14:55 Discharged to home ambulatory. ca1 14:55 Condition: stable 14:55 Discharge instructions given to patient, Instructed on discharge instructions, follow up and referral plans. medication usage, Demonstrated understanding of instructions, follow-up care, medications, Prescriptions given X 1. 14:58 Patient left the ED. ca1 Signatures: Marlene Reeves FNP-C FNP-Ckb Sanford, Demi ds1 Karla Cintron 3 Kandi Lockwood RN RN ca1 Corrections: (The following items were deleted from the chart) 14:58 14:55 Reassessment: Patient appears in no apparent distress at this time. Patient is ca1 alert, oriented x 3, equal unlabored respirations, skin warm/dry/pink. ca1
--- NOTE | 2020-01-26 14:46 | EDPHYS ---
Physician Documentation [facility] Name: Milka Quiroz Age: 69 yrs Sex: Female : 1950 Arrival Date: 01/26/2020 Time: 12:46 Bed 14 Private MD: ED Physician Corona Lenz HPI: 01/25 14:55 This 69 yrs old Female presents to ER via Wheelchair with complaints of kb Vomiting, Urinary Problem, Weakness. 14:55 The patient presents to the emergency department with nausea, vomiting. Onset: The kb symptoms/episode began/occurred 3 day(s) ago. Onset: The symptoms/episode began/occurred 2 day(s) ago. Possible causes: chemo. The symptoms are aggravated by nothing. The symptoms are alleviated by nothing. Associated signs and symptoms: Pertinent positives: nausea, vomiting. Severity of symptoms: At their worst the symptoms were moderate in the emergency department the symptoms are unchanged. The patient has not experienced similar symptoms in the past. The patient has not recently seen a physician. 14:56 Pt reports she had her first chemo treatment for ovarian cancer on Wednesday. states she kb has not been able to keep anything down for 2 days due to nausea and vomiting. Now having decreased urination so she believes she is dehydrated. Historical: - Allergies: 13:05 Codeine; ca1 - PMHx: 13:05 GERD; ovarian CA; ca1 - PSHx: 13:05 None; ca1 - Immunization history:: Adult Immunizations up to date. - Social history:: Smoking status: Patient denies any tobacco usage or history of. ROS: 14:53 Constitutional: Negative for fever, chills, and weight loss, Cardiovascular: Negative kb for chest pain, palpitations, and edema, Respiratory: Negative for shortness of breath, cough, wheezing, and pleuritic chest pain, Back: Negative for injury and pain, MS/Extremity: Negative for injury and deformity, Skin: Negative for injury, rash, and discoloration, Neuro: Negative for headache, weakness, numbness, tingling, and seizure. 14:53 Abdomen/GI: Positive for nausea and vomiting. 14:53 : Positive for decreased urination. Exam: 14:53 Constitutional: This is a well developed, well nourished patient who is awake, alert, kb and in no acute distress. Head/Face: Normocephalic, atraumatic. Chest/axilla: Normal chest wall appearance and motion. Nontender with no deformity. No lesions are appreciated. Cardiovascular: Regular rate and rhythm with a normal S1 and S2. No gallops, murmurs, or rubs. Normal PMI, no JVD. No pulse deficits. Respiratory: Lungs have equal breath sounds bilaterally, clear to auscultation and percussion. No rales, rhonchi or wheezes noted. No increased work of breathing, no retractions or nasal flaring. Abdomen/GI: Soft, non-tender, with normal bowel sounds. No distension or tympany. No guarding or rebound. No evidence of tenderness throughout. Skin: Warm, dry with normal turgor. Normal color with no rashes, no lesions, and no evidence of cellulitis. MS/ Extremity: Pulses equal, no cyanosis. Neurovascular intact. Full, normal range of motion. Neuro: Awake and alert, GCS 15, oriented to person, place, time, and situation. Cranial nerves II-XII grossly intact. Motor strength 5/5 in all extremities. Sensory grossly intact. Cerebellar exam normal. Normal gait. Vital Signs: 13:02 BP 147 / 76; Pulse 100; Resp 18 S; Temp 98.7(O); Pulse Ox 99% on R/A; Weight 53.52 kg ca1 (R); Height 5 ft. 5 in. (165.10 cm) (R); Pain 0/10; 13:50 BP 139 / 61; Pulse 79; Resp 16 S; Pulse Ox 100% on R/A; ca1 14:58 BP 130 / 61; Pulse 82; Resp 16 S; Pulse Ox 100% on R/A; ca1 13:02 Body Mass Index 19.64 (53.52 kg, 165.10 cm) ca1 MDM: 12:57 Patient medically screened. kb 14:43 Data reviewed: vital signs, nurses notes. Data interpreted: Pulse oximetry: on room air kb is 100 %. Interpretation: normal. Counseling: I had a detailed discussion with the patient and/or guardian regarding: the historical points, exam findings, and any diagnostic results supporting the discharge/admit diagnosis, lab results, the need for outpatient follow up, a family practitioner, to return to the emergency department if symptoms worsen or persist or if there are any questions or concerns that arise at home. ED course: Pt reports she is feeling much better and is tolerating PO intake. Pt has zofran 8mg tabs prescribed by oncologist but has been unable to keep them down. Will prescribe zofran 8mg ODT for future use. . 01/25 13:02 Order name: Basic Metabolic Panel kb 01/25 13:02 Order name: CBC with Diff kb 01/25 13:03 Order name: Basic Metabolic Panel; Complete Time: 13:58 EDMS 01/25 13:03 Order name: CBC with Automated Diff EDMS 01/25 13:02 Order name: IV Saline Lock; Complete Time: 13:16 kb 01/25 13:02 Order name: Labs collected and sent; Complete Time: 13:16 kb 01/25 13:58 Order name: PO challenge; Complete Time: 14:12 kb Administered Medications: 13:14 Drug: NS 0.9% 1000 ml Route: IV; Rate: 1000 ml; Site: right antecubital; ca1 13:54 Follow up: Response: No adverse reaction; IV Status: Completed infusion; IV Intake: ca1 1000ml 13:16 Drug: Zofran (Ondansetron) 4 mg Route: IVP; Site: right antecubital; ca1 13:54 Follow up: Response: No adverse reaction; Nausea is decreased ca1 Disposition: 01/26/20 14:45 Discharged to Home. Impression: Nausea and vomiting. - Condition is Stable. - Discharge Instructions: Nausea and Vomiting, Adult, [id number]. - Prescriptions for Zofran ODT 8 mg Oral tablet,disintegrating - take 1 tablet by ORAL route every 8 hours As needed; 15 tablet. - Medication Reconciliation Form, Thank You Letter, Antibiotic Education, Prescription Opioid Use form. - Follow up: Emergency Department; When: As needed; Reason: Worsening of condition. Follow up: Private Physician; When: 2 - 3 days; Reason: Recheck today's complaints, Continuance of care, Re-evaluation by your physician. Addendum: 01/29/2020 08:21 Co-signature as Attending Physician, Corona Lenz MD I agree with the assessment and k dr plan of care. Signatures: Dispatcher [employer] EDAL Marlene Reeves, ESTHETICIAN/SPA COORDINATOR-C ESTHETICIAN/SPA COORDINATOR-Ckb Corona Lenz MD MD [facility] Kandi Lockwood, RN RN ca1 Corrections: (The following items were deleted from the chart) 01/25 14:58 14:45 01/26/2020 14:45 Discharged to Home. Impression: Nausea and vomiting. Condition ca1 is Stable. Forms are Medication Reconciliation Form, Thank You Letter, Antibiotic Education, Prescription Opioid Use. Follow up: Emergency Department; When: As needed; Reason: Worsening of condition. Follow up: Private Physician; When: 2 - 3 days; Reason: Recheck today's complaints, Continuance of care, Re-evaluation by your physician. kb
[2020-01-26 15:04] VITALS: TEMP 98.7
[2020-01-26 15:05] VITALS: O2SAT 100
[2020-01-26 15:07] VITALS: BP 130/61
[2020-01-26 16:01] LABS: White Blood Cell Scan OK
[2020-01-26 16:02] LABS: Blood Morphology Comment NOT SEEN (NOT SEEN); Platelet Estimate ADEQ
== END 2020-01-26 14:58 | disposition home or self-care (01) ==
LOC: ER 12:42
DX: R11.2 Nausea with vomiting, unspecified (principal); Z88.6 Allergy status to analgesic agent
CPT/HCPCS: 96361; 85025; 80048; 36415; 96374; 99284; J7030; J2405